=== PATIENT | male | born 1940 | race African-American/Black ===

== ENCOUNTER 2017-01-12 21:52 | Emergency (ER) | payer MEDICARE, MEDICAID ==
[~2017-01-12] VITALS: Ht 177.8 cm; Wt 77.1 kg
[~2017-01-12 21:52] MED LIST: AMOXPOW XX; ASPI81CH43 PO; BUME1TAB PO; CAR3125T PO; CLON0.1T PO; CLOP75TA41 PO; DOXY-216 PO; FLUC200T50 PO; IPRA0.035; METO2.5T11 PO; NOR5T PO; OMEP20CA5 OR; POT10T PO; [UNRECOGNIZED DRUG - CODE] OP; [UNRECOGNIZED DRUG - CODE] OP
[2017-01-12 23:15] LABS: Basophils # (auto) 0 uL; Basophils % (auto) 0.5 % (0.0-2.0); Eosinophils # (auto) 0.1 uL; Eosinophils % (auto) 1.3 % (0.0-7.0); Hematocrit 37.8 % (41.0-53.0); Hemoglobin 12.3 g/dL (13.5-17.5); INR 1.09 (0.9-1.15); Lymphocytes # (auto) 2.2 uL; Mean Corpuscular Hgb Conc. 32.6 g/dL (32.0-36.0); Mean Platelet Volume 8.9 fL (7.4-10.4); Monocytes # (auto) 0.5 uL; Monocytes % (auto) 7.7 % (0.0-12.0); Neutrophils # (auto) 3.5 uL; Neutrophils % (auto) 55.5 % (37.0-80.0); Partial Thromboplastin Time 29.6 sec (22.64-33.71); Platelet Count (auto) 209 10^3/uL (140-450); Prothrombin Time 11.8 sec (9.37-12.3); Red Cell Distribution Width 15.4 % (11.6-16.0); White Blood Cell 6.3 10^3/uL (4.4-10.8)
[2017-01-12 23:23] LABS: Albumin 3.8 g/dL (3.4-5.0); BUN/Creatinine Ratio 10.1; Calcium 8.6 mg/dL (8.5-10.1); Potassium 3.4 mmol/L (3.5-5.1)
[2017-01-12 23:34] LABS: Bilirubin, Total 0.4 mg/dL (0.2-1.0); Total Protein 7.7 g/dL (6.4-8.2)
[2017-01-13 00:15] VITALS: BP 157/71
[2017-01-13] MEDS ORDERED: PANTOPRAZOLE 40 MG TAB PO ONE (00:15)
== END 2017-01-13 01:07 | disposition home or self-care (01) ==
LOC: ER 21:52
DX: K29.70 Gastritis, unspecified, without bleeding (principal); K21.9 Gastro-esophageal reflux disease without esophagitis; J45.909 Unspecified asthma, uncomplicated; I25.10 Atherosclerotic heart disease of native coronary artery without angina pectoris; Z86.73 Personal history of transient ischemic attack (TIA), and cerebral infarction without residual deficits; E11.9 Type 2 diabetes mellitus without complications; I10 Essential (primary) hypertension; I73.9 Peripheral vascular disease, unspecified; F17.210 Nicotine dependence, cigarettes, uncomplicated; Z88.1 Allergy status to other antibiotic agents; F12.10 Cannabis abuse, uncomplicated; Z79.82 Long term (current) use of aspirin; Z79.899 Other long term (current) drug therapy
CPT/HCPCS: 36415; 80053; 84484; 85025; 85610; 85730; 93005

== ENCOUNTER 2017-01-31 00:21 | Emergency (ER) | payer MEDICARE, MEDICAID ==
[~2017-01-31] VITALS: Ht 177.8 cm; Wt 77.1 kg
[2017-01-31 01:08] LABS: Basophils # (auto) 0.1 uL; Basophils % (auto) 0.5 % (0.0-2.0); Eosinophils # (auto) 0.1 uL; Eosinophils % (auto) 0.7 % (0.0-7.0); Hemoglobin 11.6 g/dL (13.5-17.5); Lymphocytes % (auto) 21.5 % (10.0-50.0); Mean Corpuscular Hemoglobin 31.1 pg (28.0-32.0); Mean Corpuscular Hgb Conc. 32.4 g/dL (32.0-36.0); Mean Corpuscular Volume 96.2 fL (80.0-100.0); Mean Platelet Volume 8.1 fL (7.4-10.4); Monocytes # (auto) 0.6 uL; Monocytes % (auto) 6.4 % (0.0-12.0); Neutrophils # (auto) 6.6 uL; Neutrophils % (auto) 70.9 % (37.0-80.0); Platelet Count (auto) 277 10^3/uL (140-450); White Blood Cell 9.3 10^3/uL (4.4-10.8)
[2017-01-31 01:22] LABS: INR 1.04 (0.9-1.15); Prothrombin Time 11.2 sec (9.37-12.3)
[2017-01-31 01:38] LABS: Albumin 3.9 g/dL (3.4-5.0); BUN/Creatinine Ratio 13.5; Calcium 8.7 mg/dL (8.5-10.1); Potassium 3.3 mmol/L (3.5-5.1)
[2017-01-31 01:41] LABS: Bilirubin, Total 0.5 mg/dL (0.2-1.0); Total Protein 7.5 g/dL (6.4-8.2)
[2017-01-31 04:43] VITALS: BP 140/80
== END 2017-01-31 04:50 | disposition home or self-care (01) ==
LOC: EDBD 00:21 → ER 00:21
DX: T82.838A Hemorrhage due to vascular prosthetic devices, implants and grafts, initial encounter (principal); I25.10 Atherosclerotic heart disease of native coronary artery without angina pectoris; I10 Essential (primary) hypertension; J45.909 Unspecified asthma, uncomplicated; E11.9 Type 2 diabetes mellitus without complications; F17.210 Nicotine dependence, cigarettes, uncomplicated; F12.10 Cannabis abuse, uncomplicated; Z86.73 Personal history of transient ischemic attack (TIA), and cerebral infarction without residual deficits; Z88.1 Allergy status to other antibiotic agents; Y93.89 Activity, other specified; Y99.8 Other external cause status; Y92.89 Other specified places as the place of occurrence of the external cause
CPT/HCPCS: 36415; 80053; 85025; 85610

== ENCOUNTER 2017-01-31 17:42 | Emergency (ER) | payer MEDICARE, MEDICAID ==
[~2017-01-31] VITALS: Ht 177.8 cm; Wt 77.1 kg
[2017-01-31 19:25] VITALS: BP 148/87
[2017-01-31 19:46] LABS: Basophils # (auto) 0 uL; Basophils % (auto) 0.3 % (0.0-2.0); Eosinophils # (auto) 0.1 uL; Eosinophils % (auto) 0.9 % (0.0-7.0); Hematocrit 35.1 % (41.0-53.0); Hemoglobin 11.6 g/dL (13.5-17.5); Lymphocytes # (auto) 1.3 uL; Mean Corpuscular Hemoglobin 31.7 pg (28.0-32.0); Mean Corpuscular Volume 96.3 fL (80.0-100.0); Mean Platelet Volume 9.2 fL (7.4-10.4); Monocytes # (auto) 0.5 uL; Monocytes % (auto) 7.3 % (0.0-12.0); Neutrophils # (auto) 4.7 uL; Neutrophils % (auto) 71.5 % (37.0-80.0); Platelet Count (auto) 269 10^3/uL (140-450); Red Cell Distribution Width 15.9 % (11.6-16.0); White Blood Cell 6.6 10^3/uL (4.4-10.8)
[2017-01-31 19:53] LABS: Albumin 4.1 g/dL (3.4-5.0); BUN/Creatinine Ratio 11.9; Calcium 9.2 mg/dL (8.5-10.1); Potassium 3.4 mmol/L (3.5-5.1)
[2017-01-31 19:56] LABS: Bilirubin, Total 0.8 mg/dL (0.2-1.0); Total Protein 7.7 g/dL (6.4-8.2)
[2017-01-31 20:08] LABS: INR 1.03 (0.9-1.15); Partial Thromboplastin Time 27.8 sec (22.64-33.71); Prothrombin Time 11.1 sec (9.37-12.3)
[2017-01-31] MEDS ORDERED: FAMOTIDINE (10MG/ML) 2ML VL IV ONE ×2 (20:39→20:45)
== END 2017-01-31 21:16 | disposition home or self-care (01) ==
LOC: ER 17:44
DX: Z48.01 Encounter for change or removal of surgical wound dressing (principal); D68.9 Coagulation defect, unspecified; E11.9 Type 2 diabetes mellitus without complications; I10 Essential (primary) hypertension; J45.909 Unspecified asthma, uncomplicated; I25.810 Atherosclerosis of coronary artery bypass graft(s) without angina pectoris; F12.10 Cannabis abuse, uncomplicated; F17.210 Nicotine dependence, cigarettes, uncomplicated; Z86.73 Personal history of transient ischemic attack (TIA), and cerebral infarction without residual deficits; Z98.61 Coronary angioplasty status; Z88.1 Allergy status to other antibiotic agents
CPT/HCPCS: 36415; 80053; 85025; 85610; 85730; 96374; 99284; J3490

== ENCOUNTER 2021-12-05 11:54 | Inpatient (IN) | payer MEDICARE, MEDICAID ==
[~2021-12-05] VITALS: Ht 177.8 cm; Wt 82.3 kg
[~2021-12-05 11:54] MED LIST changes: -BUME1TAB PO; +BUME1TAB3 PO; -CLOP75TA41 PO; +CLOP75TA70 PO; -DOXY-216 PO; +DOXY-286 PO; +HYDR-4833 PO; +METO2.5T PO; -METO2.5T11 PO; -NOR5T PO; -OMEP20CA5 OR; +OMEP20CA74 OR
[2021-12-05 13:01] LABS: Albumin 3.3 g/dL (3.4-5.0); Basophils # (auto) 0 10 ^3/uL (0-0.2); Basophils % (auto) 0.6 % (0.0-2.0); Calcium 9.3 mg/dL (8.5-10.1); Eosinophils # (auto) 0 10 ^3/uL (0-0.8); Eosinophils % (auto) 0.7 % (0.0-7.0); Hematocrit 34.8 % (41.0-53.0); Hemoglobin 11.5 g/dL (13.5-17.5); Lymphocytes # (auto) 1.2 10 ^3/uL (0.4-5.4); Mean Corpuscular Hemoglobin 32.8 pg (28.0-32.0); Mean Corpuscular Volume 99.5 fL (80.0-100.0); Monocytes # (auto) 0.4 10 ^3/uL (0-1.3); Neutrophils # (auto) 4.6 10 ^3/uL (1.6-8.6); Neutrophils % (auto) 72.7 % (37.0-80.0); Potassium 3.6 mmol/L (3.5-5.1); Red Cell Distribution Width 14.6 % (11.8-14.3); White Blood Cell 6.4 10^3/uL (4.4-10.8)
[2021-12-05 13:03] LABS: BUN/Creatinine Ratio 10.8
[2021-12-05 13:08] LABS: Bilirubin, Total 0.4 mg/dL (0.2-1.0); Total Protein 6.7 g/dL (6.4-8.2)
[2021-12-05] MEDS ORDERED: methylPREDNISolone SOD SUCC 125 MG/2 ML VL IV ONE (14:00)
[2021-12-05] MEDS ORDERED: FUROSEMIDE 40 MG/4 ML VIAL IV ONE (14:00)
[2021-12-05] MEDS ORDERED: ENOXAPARIN SOD 80 MG/0.8ML SYRINGE SC ONE (14:00)
[2021-12-05] MEDS ORDERED: IPRATROPIUM BROM 0.5 MG/2.5ML INH SOL NEB ONE (14:00)
[2021-12-05] MEDS ORDERED: ALBUTEROL SULF 2.5 MG/0.5ML(0.5%) NEB SOLN NEB ONE (14:00)
[2021-12-05 14:18] LABS: Urine Bacteria NONE SEEN /hpf (None Seen); Urine Blood Negative /uL (Negative); Urine Specific Gravity 1.014 (1.001-1.035); Urine WBC <1 /hpf (0 - 3)
[2021-12-05] MEDS ORDERED: ACETAMINOPHEN 325 MG TAB PO PRN (15:15)
[2021-12-05] MEDS ORDERED: HYDROcodone-ACET 5/325MG TAB PO PRN (15:15)
[2021-12-05] MEDS ORDERED: MORPHINE SULFATE INJECTION 2 MG/ML SYRG IV PRN ×2 (15:15)
[2021-12-05] MEDS ORDERED: ONDANSETRON HCL 4 MG/2 ML VIAL IV PRN (15:15)
[2021-12-05] MEDS ORDERED: DOCUSATE SOD 100 MG CAP PO PRN (15:15)
[2021-12-05] MEDS ORDERED: NITROGLYCERIN 0.4 MG SL TAB SL PRN (15:15)
[2021-12-05] MEDS ORDERED: DEXTROSE (50%) 50ML SYRG IV PRN (15:30)
[2021-12-05 15:48] LABS: Cholesterol 182 mg/dL (< 200)
[2021-12-05 15:51] LABS: HDL Cholesterol 47 mg/dL (40-59); LDL Cholesterol 117 mg/dL (< 100); Triglycerides 54 mg/dL (< 150)
[2021-12-05] MEDS: InsuLIN REG 1unit/0.01ml Soln (100units/ml) SC SCH ×2 (17:00→21:43)
[2021-12-05] MEDS: ACCU-CHEK COMFORT CURVE STRIP VI SCH ×2 (17:00→21:43)
[2021-12-05 18:00] VITALS: BP 148/59
[2021-12-05] MEDS ORDERED: HEPARIN DRIP/D5W 100UNITS/ML 250 ML IV SCH (18:30)
[2021-12-05] MEDS ORDERED: HEPARIN SODIUM (PORCINE) 5000 UNITS/ML 1ML VIAL IV ONE (18:30)
[2021-12-05] MEDS ORDERED: DEXL60CA4 PO (18:54)
[2021-12-05] MEDS ORDERED: FURO20TA3 PO (18:54)
[2021-12-05] MEDS ORDERED: IPRIH IN (18:54)
[2021-12-05] MEDS ORDERED: GABA300C10 PO (18:54)
[2021-12-05] MEDS ORDERED: ATOR20TA50 PO (18:54)
[2021-12-05] MEDS ORDERED: BUDE1AER4 IN (18:54)
[2021-12-05] MEDS ORDERED: ALBU108A5 IN (18:54)
[2021-12-05] MEDS ORDERED: ALLO300T2 PO (18:54)
[2021-12-05 20:49] LABS: Basophils # (auto) 0 10 ^3/uL (0-0.2); Basophils % (auto) 0.1 % (0.0-2.0); Eosinophils # (auto) 0 10 ^3/uL (0-0.8); Hematocrit 34.2 % (41.0-53.0); Hemoglobin 11.7 g/dL (13.5-17.5); Lymphocytes # (auto) 0.3 10 ^3/uL (0.4-5.4); Lymphocytes % (auto) 5.1 % (10.0-50.0); Mean Corpuscular Hemoglobin 33.7 pg (28.0-32.0); Mean Corpuscular Hgb Conc. 34.1 g/dL (32.0-36.0); Mean Corpuscular Volume 98.7 fL (80.0-100.0); Monocytes # (auto) 0 10 ^3/uL (0-1.3); Monocytes % (auto) 0.8 % (0.0-12.0); Neutrophils # (auto) 5.8 10 ^3/uL (1.6-8.6); Red Blood Cells 3.47 10^6/uL (4.5-5.90); Red Cell Distribution Width 14.7 % (11.8-14.3); White Blood Cell 6.2 10^3/uL (4.4-10.8)
[2021-12-05 20:51] VITALS: BP 18/166
[2021-12-05 21:05] LABS: INR 1.1 (0.9-1.15); Partial Thromboplastin Time 36.7 sec (23.6-33.0)
[2021-12-05 22:00] VITALS: BP 141/70
[2021-12-05] MEDS ORDERED: IPRATROPIUM BROM 0.5 MG/2.5ML INH SOL NEB SCH (22:00)
[2021-12-05] MEDS ORDERED: CARVEDILOL 3.125 MG TAB PO SCH (22:00)
[2021-12-05] MEDS: ALBUTEROL SULF 2.5 MG/0.5ML(0.5%) NEB SOLN NEB PRN (22:48)
[2021-12-05] MEDS: IPRATROPIUM BROM 0.5 MG/2.5ML INH SOL NEB SCH (22:48)
[2021-12-06] VITALS (11 sets, daily range): BP systolic 119–207; BP diastolic 59–92
[2021-12-06] MEDS ORDERED: HEPARIN DRIP/D5W 100UNITS/ML 250 ML IV SCH
[2021-12-06] MEDS ORDERED: FUROSEMIDE 40 MG/4 ML VIAL IV ONE (00:45)
[2021-12-06] MEDS ORDERED: CARVEDILOL 3.125 MG TAB PO ONE (01:00)
[2021-12-06] MEDS ORDERED: NITROGLYCERIN 0.4 MG SL TAB SL ONE (01:12)
[2021-12-06] MEDS ORDERED: NITROGLYCERIN 0.4 MG SL TAB SL PRN (01:15)
[2021-12-06] MEDS ORDERED: PANTOPRAZOLE 40 MG/10 ML VIAL INJ IV ONE (01:30)
[2021-12-06] MEDS ORDERED: ALBUTEROL SULF HFA 90MCG INH 200DOSE IN PRN (02:00)
[2021-12-06 05:52] LABS: Basophils # (auto) 0 10 ^3/uL (0-0.2); Basophils % (auto) 0.1 % (0.0-2.0); Eosinophils # (auto) 0 10 ^3/uL (0-0.8); Hematocrit 28.7 % (41.0-53.0); Lymphocytes # (auto) 0.8 10 ^3/uL (0.4-5.4); Lymphocytes % (auto) 11.7 % (10.0-50.0); Mean Corpuscular Hemoglobin 33.9 pg (28.0-32.0); Mean Corpuscular Hgb Conc. 34.8 g/dL (32.0-36.0); Mean Corpuscular Volume 97.2 fL (80.0-100.0); Monocytes # (auto) 0.4 10 ^3/uL (0-1.3); Monocytes % (auto) 6.2 % (0.0-12.0); Neutrophils # (auto) 5.9 10 ^3/uL (1.6-8.6); Red Blood Cells 2.95 10^6/uL (4.5-5.90); Red Cell Distribution Width 14.6 % (11.8-14.3); White Blood Cell 7.1 10^3/uL (4.4-10.8)
[2021-12-06] MEDS: InsuLIN REG 1unit/0.01ml Soln (100units/ml) SC SCH ×3 (06:06→21:09)
[2021-12-06] MEDS: FUROSEMIDE 40 MG/4 ML VIAL IV SCH ×2 (06:06→17:34)
[2021-12-06] MEDS: ACCU-CHEK COMFORT CURVE STRIP VI SCH ×4 (06:06→21:09)
[2021-12-06] MEDS: SUCRALFATE 1 GM TAB PO SCH ×4 (06:06→21:09)
[2021-12-06] MEDS: ALBUTEROL SULF 2.5 MG/0.5ML(0.5%) NEB SOLN NEB PRN (06:14)
[2021-12-06] MEDS: IPRATROPIUM BROM 0.5 MG/2.5ML INH SOL NEB SCH ×2 (06:14→22:16)
[2021-12-06] MEDS: CARVEDILOL 3.125 MG TAB PO SCH ×2 (09:29→20:33)
[2021-12-06] MEDS: GABAPENTIN 300 MG CAP PO SCH ×2 (09:53→21:09)
[2021-12-06] MEDS ORDERED: ATORVASTATIN 20 MG TAB PO SCH (10:00)
[2021-12-06] MEDS ORDERED: PANTOPRAZOLE 40 MG/10 ML VIAL INJ IV SCH (10:00)
[2021-12-06 10:03] LABS: INR 1.16 (0.9-1.15); Partial Thromboplastin Time 44.3 sec (23.6-33.0)
[2021-12-06] MEDS: ATORVASTATIN 20 MG TAB PO SCH (10:04)
[2021-12-06] MEDS: ALLOPURINOL 100 MG TAB PO SCH (10:08)
[2021-12-07 04:47] VITALS: BP 164/84
[2021-12-07] MEDS: ACCU-CHEK COMFORT CURVE STRIP VI SCH (05:45)
[2021-12-07] MEDS: SUCRALFATE 1 GM TAB PO SCH (05:46)
[2021-12-07] MEDS: ALBUTEROL SULF 2.5 MG/0.5ML(0.5%) NEB SOLN NEB PRN (06:09)
[2021-12-07 06:10] LABS: Basophils # (auto) 0.1 10 ^3/uL (0-0.2); Basophils % (auto) 0.8 % (0.0-2.0); Eosinophils # (auto) 0.1 10 ^3/uL (0-0.8); Eosinophils % (auto) 0.9 % (0.0-7.0); Hematocrit 31.1 % (41.0-53.0); Hemoglobin 10.5 g/dL (13.5-17.5); Lymphocytes # (auto) 1.7 10 ^3/uL (0.4-5.4); Lymphocytes % (auto) 21.6 % (10.0-50.0); Mean Corpuscular Hemoglobin 33.2 pg (28.0-32.0); Mean Corpuscular Hgb Conc. 33.8 g/dL (32.0-36.0); Mean Corpuscular Volume 98.2 fL (80.0-100.0); Monocytes # (auto) 0.7 10 ^3/uL (0-1.3); Monocytes % (auto) 8.4 % (0.0-12.0); Neutrophils # (auto) 5.4 10 ^3/uL (1.6-8.6); Neutrophils % (auto) 68.3 % (37.0-80.0); Nucleated Red Blood Cells % 0.1 %; Red Blood Cells 3.16 10^6/uL (4.5-5.90); Red Cell Distribution Width 14.6 % (11.8-14.3); White Blood Cell 7.9 10^3/uL (4.4-10.8)
[2021-12-07] MEDS: IPRATROPIUM BROM 0.5 MG/2.5ML INH SOL NEB SCH ×3 (06:10→19:44)
[2021-12-07 06:44] LABS: Calcium 8.8 mg/dL (8.5-10.1); Potassium 3.9 mmol/L (3.5-5.1)
[2021-12-07 06:46] LABS: BUN/Creatinine Ratio 18.3
[2021-12-07] MEDS: FUROSEMIDE 40 MG/4 ML VIAL IV SCH (06:52)
[2021-12-07 08:00] VITALS: BP 155/74
[2021-12-07 08:58] VITALS: BP 155/74
[2021-12-07] MEDS: ASPirin 81 mg TAB PO SCH ×2 (10:00→10:07)
[2021-12-07] MEDS: CARVEDILOL 3.125 MG TAB PO SCH ×2 (10:07→21:31)
[2021-12-07] MEDS: ATORVASTATIN 20 MG TAB PO SCH (10:08)
[2021-12-07] MEDS: PANTOPRAZOLE 40 MG TAB PO SCH (10:10)
[2021-12-07] MEDS: ALLOPURINOL 100 MG TAB PO SCH (10:10)
[2021-12-07] MEDS: CLOPIDOGREL BISULFATE 75 MG TAB PO SCH (10:10)
[2021-12-07] MEDS: GABAPENTIN 300 MG CAP PO SCH ×2 (10:10→21:32)
[2021-12-07] MEDS: ALBUTEROL SULF 2.5 MG/0.5ML(0.5%) NEB SOLN NEB SCH ×2 (12:32→18:00)
[2021-12-07 13:00] VITALS: BP 154/70
[2021-12-07] MEDS ORDERED: LABETALOL HCL 5 MG/ML 4ML SYRINGE IV PRN (15:45)
[2021-12-07 17:00] VITALS: BP 115/70
[2021-12-07 22:00] VITALS: BP 151/66
[2021-12-08 05:00] VITALS: BP 164/73
[2021-12-08] MEDS: ALBUTEROL SULF 2.5 MG/0.5ML(0.5%) NEB SOLN NEB SCH ×2 (06:46→10:28)
[2021-12-08] MEDS: IPRATROPIUM BROM 0.5 MG/2.5ML INH SOL NEB SCH ×2 (06:47→10:28)
[2021-12-08 08:00] VITALS: BP 136/77
[2021-12-08] MEDS: ATORVASTATIN 20 MG TAB PO SCH (09:30)
[2021-12-08] MEDS: CLOPIDOGREL BISULFATE 75 MG TAB PO SCH (09:30)
[2021-12-08] MEDS: PANTOPRAZOLE 40 MG TAB PO SCH (09:30)
[2021-12-08] MEDS: ALLOPURINOL 100 MG TAB PO SCH (09:30)
[2021-12-08] MEDS: CARVEDILOL 3.125 MG TAB PO SCH (09:30)
[2021-12-08] MEDS: GABAPENTIN 300 MG CAP PO SCH (09:30)
[2021-12-08] MEDS: ASPirin 81 mg TAB PO SCH (10:00)
[2021-12-08] MEDS ORDERED: FUROSEMIDE 40 MG TAB PO SCH (10:00)
[2021-12-08 12:00] VITALS: BP 141/76
[2021-12-08] MEDS ORDERED: 1,4-CRY XX ×2 (12:20→12:21)
[2021-12-08] MEDS ORDERED: LIDO1PAD EX (12:20)
[2021-12-08] MEDS ORDERED: CAL025T GT (12:20)
[2021-12-08] MEDS ORDERED: ALBU108A5 IN (12:21)
[2021-12-08] MEDS ORDERED: DEXL60CA4 PO (12:21)
[2021-12-08] MEDS ORDERED: BUDE1AER4 IN (12:21)
[2021-12-08] MEDS ORDERED: IPRIH IN ×2 (12:21→12:24)
== END 2021-12-08 17:02 | disposition home health service (06) | DRG 194 ==
LOC: ER 11:54 → EDUNIT# 11:54 → EDBD 11:54 → TELE-CENTR 15:17 → ER 17:37
PROVIDERS: ADMIT Family Medicine; ATTEND Internal Medicine
DX: I13.0 Hypertensive heart and chronic kidney disease with heart failure and stage 1 through stage 4 chronic kidney disease, or unspecified chronic kidney disease (principal); J96.00 Acute respiratory failure, unspecified whether with hypoxia or hypercapnia; I21.A1 Myocardial infarction type 2; E44.1 Mild protein-calorie malnutrition; N17.9 Acute kidney failure, unspecified; D63.8 Anemia in other chronic diseases classified elsewhere; N18.30 Chronic kidney disease, stage 3 unspecified; E11.65 Type 2 diabetes mellitus with hyperglycemia; E66.3 Overweight; F17.210 Nicotine dependence, cigarettes, uncomplicated; E11.22 Type 2 diabetes mellitus with diabetic chronic kidney disease; I50.82 Biventricular heart failure; E11.51 Type 2 diabetes mellitus with diabetic peripheral angiopathy without gangrene; Z20.822 Contact with and (suspected) exposure to COVID-19; I25.10 Atherosclerotic heart disease of native coronary artery without angina pectoris; J44.9 Chronic obstructive pulmonary disease, unspecified; M10.9 Gout, unspecified; Z80.3 Family history of malignant neoplasm of breast; Z88.1 Allergy status to other antibiotic agents; Z80.8 Family history of malignant neoplasm of other organs or systems; I25.2 Old myocardial infarction; Z82.49 Family history of ischemic heart disease and other diseases of the circulatory system; Z83.3 Family history of diabetes mellitus; Z86.73 Personal history of transient ischemic attack (TIA), and cerebral infarction without residual deficits; Z89.439 Acquired absence of unspecified foot; Z95.1 Presence of aortocoronary bypass graft; Z89.422 Acquired absence of other left toe(s); Z68.25 Body mass index [BMI] 25.0-25.9, adult; I50.33 Acute on chronic diastolic (congestive) heart failure
CPT/HCPCS: 36415; 36600; 71045; 80048; 80053; 80061; 81001; 82805; 82962; 83036; 83880; 84443; 84484; 85025; 85379; 85610; 85730; 93005; 93306; 93970; 94640; 96365; 96375; 97110; 97530; 99291; C9113; G0378; J3490

== ENCOUNTER 2021-12-16 19:17 | Inpatient (IN) | payer MEDICARE, MEDICAID ==
[~2021-12-16] VITALS: Ht 177.8 cm; Wt 80.9 kg
[~2021-12-16 19:17] MED LIST changes: +ALBU108A5 IN; +ALLO300T2 PO; -AMOXPOW XX; -ASPI81CH43 PO; +ATOR20TA50 PO; +BUDE1AER4 IN; -BUME1TAB3 PO; -CAR3125T PO; -CLON0.1T PO; +DEXL60CA4 PO; -DOXY-286 PO; -FLUC200T50 PO; +FURO20TA3 PO; +GABA300C10 PO; -HYDR-4833 PO; -IPRA0.035; +IPRIH IN; -METO2.5T PO; -OMEP20CA74 OR; -[UNRECOGNIZED DRUG - CODE] OP
[2021-12-16] MEDS ORDERED: ASPirin 325 MG TAB PO ONE (20:45)
[2021-12-16] MEDS ORDERED: NITROGLYCERIN 2% OINT 1GM PKG TD ONE (21:00)
[2021-12-16 21:34] LABS: Basophils # (auto) 0 10 ^3/uL (0-0.2); Basophils % (auto) 0.6 % (0.0-2.0); Eosinophils # (auto) 0.1 10 ^3/uL (0-0.8); Eosinophils % (auto) 0.9 % (0.0-7.0); Hematocrit 28.6 % (41.0-53.0); Hemoglobin 9.8 g/dL (13.5-17.5); Lymphocytes # (auto) 1.5 10 ^3/uL (0.4-5.4); Lymphocytes % (auto) 25.1 % (10.0-50.0); Mean Corpuscular Hemoglobin 33.6 pg (28.0-32.0); Mean Corpuscular Hgb Conc. 34.2 g/dL (32.0-36.0); Mean Corpuscular Volume 98.4 fL (80.0-100.0); Monocytes # (auto) 0.6 10 ^3/uL (0-1.3); Monocytes % (auto) 10.6 % (0.0-12.0); Neutrophils # (auto) 3.7 10 ^3/uL (1.6-8.6); Neutrophils % (auto) 62.8 % (37.0-80.0); Nucleated Red Blood Cells % 0.1 %; Red Blood Cells 2.91 10^6/uL (4.5-5.90); Red Cell Distribution Width 14.3 % (11.8-14.3); White Blood Cell 5.8 10^3/uL (4.4-10.8)
[2021-12-16 21:46] LABS: INR 1.16 (0.9-1.15); Partial Thromboplastin Time 27.8 sec (23.6-33.0)
[2021-12-16 21:50] LABS: Calcium 8.6 mg/dL (8.5-10.1); Potassium 3.7 mmol/L (3.5-5.1)
[2021-12-16 21:55] LABS: BUN/Creatinine Ratio 12.1; Bilirubin, Total 0.5 mg/dL (0.2-1.0)
[2021-12-16] MEDS ORDERED: ENOXAPARIN SOD 80 MG/0.8ML SYRINGE SC ONE (22:30)
[2021-12-16] MEDS ORDERED: FUROSEMIDE 100 MG/10ML VIAL IV ONE (22:30)
[2021-12-16] MEDS ORDERED: NITROGLYCERIN 0.4 MG SL TAB SL PRN (23:15)
[2021-12-16] MEDS ORDERED: MORPHINE SULFATE INJECTION 2 MG/ML SYRG IV PRN (23:15)
[2021-12-16] MEDS ORDERED: HYDROcodone-ACET 5/325MG TAB PO PRN (23:15)
[2021-12-16] MEDS ORDERED: ACETAMINOPHEN 325 MG TAB PO PRN (23:15)
[2021-12-16] MEDS ORDERED: ONDANSETRON HCL 4 MG/2 ML VIAL IV PRN (23:15)
[2021-12-16] MEDS ORDERED: MORPHINE SULFATE 4 MG/ML SYR/VIAL IV PRN (23:15)
[2021-12-16] MEDS ORDERED: hydrALAZINE HCL 20 MG/ML VL IV ONE (23:30)
[2021-12-16 23:37] LABS: Urine Bacteria NONE SEEN /hpf (None Seen); Urine Blood Negative /uL (Negative); Urine Specific Gravity 1.005 (1.001-1.035); Urine WBC <1 /hpf (0 - 3)
[2021-12-16] MEDS ORDERED: hydrALAZINE HCL 20 MG/ML VL IV PRN (23:45)
[2021-12-17] MEDS ORDERED: amLODIPine BESYLATE 5 MG TAB PO ONE (01:30)
[2021-12-17] MEDS ORDERED: FAMOTIDINE (10MG/ML) 2ML VL IV ONE (01:45)
[2021-12-17 03:38] VITALS: BP 141/65
[2021-12-17] MEDS ORDERED: SUCR1TAB PO (04:08)
[2021-12-17 05:00] VITALS: BP 147/52
[2021-12-17] MEDS ORDERED: TRAM50TA2 PO (05:07)
[2021-12-17] MEDS ORDERED: NITR0.4S29 SL (05:07)
[2021-12-17] MEDS ORDERED: ALIR75IN2 SC (05:07)
[2021-12-17] MEDS ORDERED: CLOP75TA28 PO (05:07)
[2021-12-17] MEDS ORDERED: OMEG100078 PO (05:07)
[2021-12-17] MEDS ORDERED: ALBUAER3 IN (05:07)
[2021-12-17] MEDS: SODIUM CHLOR 0.9% PF (SALINE LOCK) 10ML VIAL/SYR IV SCH ×3 (05:58→22:00)
[2021-12-17] MEDS: HEPARIN SODIUM (PORCINE) 5000 UNITS/ML 1ML VIAL SC SCH ×2 (05:59→14:00)
[2021-12-17 08:02] LABS: Basophils # (auto) 0.1 10 ^3/uL (0-0.2); Basophils % (auto) 0.9 % (0.0-2.0); Eosinophils # (auto) 0.1 10 ^3/uL (0-0.8); Eosinophils % (auto) 0.8 % (0.0-7.0); Hemoglobin 10.3 g/dL (13.5-17.5); Lymphocytes # (auto) 1.5 10 ^3/uL (0.4-5.4); Lymphocytes % (auto) 22.3 % (10.0-50.0); Mean Corpuscular Hemoglobin 33.5 pg (28.0-32.0); Mean Corpuscular Hgb Conc. 34.2 g/dL (32.0-36.0); Mean Corpuscular Volume 97.9 fL (80.0-100.0); Monocytes # (auto) 0.6 10 ^3/uL (0-1.3); Monocytes % (auto) 8.9 % (0.0-12.0); Neutrophils # (auto) 4.7 10 ^3/uL (1.6-8.6); Neutrophils % (auto) 67.1 % (37.0-80.0); Red Blood Cells 3.06 10^6/uL (4.5-5.90); Red Cell Distribution Width 14.5 % (11.8-14.3); White Blood Cell 6.9 10^3/uL (4.4-10.8)
[2021-12-17 08:24] LABS: Albumin 3.1 g/dL (3.4-5.0); Calcium 8.7 mg/dL (8.5-10.1)
[2021-12-17 08:28] LABS: BUN/Creatinine Ratio 12.4; Bilirubin, Total 0.5 mg/dL (0.2-1.0); Total Protein 6.1 g/dL (6.4-8.2)
[2021-12-17 09:00] VITALS: BP 159/87
[2021-12-17] MEDS: CARVEDILOL 3.125 MG TAB PO SCH ×2 (09:13→22:00)
[2021-12-17] MEDS: ASPirin 81 mg TAB PO SCH (09:13)
[2021-12-17] MEDS: amLODIPine BESYLATE 5 MG TAB PO SCH (09:14)
[2021-12-17] MEDS ORDERED: FUROSEMIDE 40 MG/4 ML VIAL IV SCH (10:00)
[2021-12-17] MEDS: FORMOTEROL IN SCH (10:00)
[2021-12-17] MEDS: BUDESONIDE IN SCH (10:00)
[2021-12-17] MEDS ORDERED: FAMOTIDINE (10MG/ML) 2ML VL IV SCH (10:00)
[2021-12-17] MEDS: SUCRALFATE 1 GM TAB PO SCH ×3 (11:30→22:00)
[2021-12-17 13:00] VITALS: BP 143/73
[2021-12-17] MEDS ORDERED: NITROGLYCERIN 0.2MG/HR TOPICAL PATCH TD SCH (13:00)
[2021-12-17] MEDS ORDERED: IPRATROPIUM BROMIDE HFA AER IN SCH (14:00)
[2021-12-17] MEDS ORDERED: HEPARIN DRIP/D5W 100UNITS/ML 250 ML IV SCH ×5 (14:45→15:00)
[2021-12-17] MEDS ORDERED: HEPARIN SODIUM (PORCINE) 5000 UNITS/ML 1ML VIAL IV ONE ×6 (14:45→15:00)
[2021-12-17] MEDS: HEPARIN DRIP/D5W 100UNITS/ML 250 ML IV SCH (16:00)
[2021-12-17 16:41] LABS: Basophils # (auto) 0.1 10 ^3/uL (0-0.2); Basophils % (auto) 0.9 % (0.0-2.0); Eosinophils # (auto) 0.1 10 ^3/uL (0-0.8); Eosinophils % (auto) 1.7 % (0.0-7.0); Hemoglobin 10.1 g/dL (13.5-17.5); Lymphocytes # (auto) 1.6 10 ^3/uL (0.4-5.4); Lymphocytes % (auto) 27.1 % (10.0-50.0); Mean Corpuscular Hemoglobin 33.1 pg (28.0-32.0); Mean Corpuscular Hgb Conc. 33.7 g/dL (32.0-36.0); Mean Corpuscular Volume 98.4 fL (80.0-100.0); Monocytes # (auto) 0.6 10 ^3/uL (0-1.3); Monocytes % (auto) 10.7 % (0.0-12.0); Neutrophils # (auto) 3.5 10 ^3/uL (1.6-8.6); Neutrophils % (auto) 59.6 % (37.0-80.0); Nucleated Red Blood Cells % 0.1 %; Red Blood Cells 3.05 10^6/uL (4.5-5.90); Red Cell Distribution Width 14.6 % (11.8-14.3); White Blood Cell 5.8 10^3/uL (4.4-10.8)
[2021-12-17 16:43] VITALS: BP 143/62
[2021-12-17 17:20] LABS: INR 1.11 (0.9-1.15); Partial Thromboplastin Time 34.5 sec (23.6-33.0)
[2021-12-17] MEDS: FUROSEMIDE 40 MG/4 ML VIAL IV SCH (18:00)
[2021-12-17] MEDS: NITROGLYCERIN 0.2MG/HR TOPICAL PATCH TD SCH (20:59)
[2021-12-17 22:00] VITALS: BP 138/49
[2021-12-17] MEDS: GABAPENTIN 300 MG CAP PO SCH (22:00)
[2021-12-17] MEDS: ATORVASTATIN 20 MG TAB PO SCH (22:00)
[2021-12-17] MEDS: POTASSIUM CHL 10 Meq TABLET PO SCH (22:00)
[2021-12-17 23:33] LABS: INR 1.16 (0.9-1.15); Partial Thromboplastin Time 56.4 sec (23.6-33.0)
[2021-12-18 05:00] VITALS: BP 143/56
[2021-12-18] MEDS: SODIUM CHLOR 0.9% PF (SALINE LOCK) 10ML VIAL/SYR IV SCH ×3 (06:05→22:13)
[2021-12-18] MEDS: FUROSEMIDE 40 MG/4 ML VIAL IV SCH ×2 (06:05→19:02)
[2021-12-18] MEDS: SUCRALFATE 1 GM TAB PO SCH ×4 (06:06→22:13)
[2021-12-18 06:27] LABS: Basophils # (auto) 0 10 ^3/uL (0-0.2); Basophils % (auto) 0.8 % (0.0-2.0); Eosinophils # (auto) 0.1 10 ^3/uL (0-0.8); Hemoglobin 10.2 g/dL (13.5-17.5); Lymphocytes # (auto) 2.1 10 ^3/uL (0.4-5.4); Monocytes # (auto) 0.6 10 ^3/uL (0-1.3); Nucleated Red Blood Cells % 0.1 %; Red Cell Distribution Width 14.5 % (11.8-14.3)
[2021-12-18 06:29] LABS: Eosinophils % (auto) 2.3 % (0.0-7.0); Hematocrit 29.3 % (41.0-53.0); Lymphocytes % (auto) 33.5 % (10.0-50.0); Mean Corpuscular Hemoglobin 34.2 pg (28.0-32.0); Mean Corpuscular Hgb Conc. 34.7 g/dL (32.0-36.0); Mean Corpuscular Volume 98.7 fL (80.0-100.0); Monocytes % (auto) 9.9 % (0.0-12.0); Neutrophils # (auto) 3.4 10 ^3/uL (1.6-8.6); Neutrophils % (auto) 53.5 % (37.0-80.0); Red Blood Cells 2.97 10^6/uL (4.5-5.90); White Blood Cell 6.3 10^3/uL (4.4-10.8)
[2021-12-18 06:34] LABS: BUN/Creatinine Ratio 12.1; Calcium 8.3 mg/dL (8.5-10.1); Magnesium 1.9 mg/dL (1.6-2.6); Potassium 4.1 mmol/L (3.5-5.1)
[2021-12-18 06:41] LABS: INR 1.17 (0.9-1.15); Partial Thromboplastin Time 54.7 sec (23.6-33.0)
[2021-12-18 08:00] VITALS: BP 142/68
[2021-12-18] MEDS ORDERED: ALLOPURINOL 100 MG TAB PO SCH (10:00)
[2021-12-18] MEDS: FORMOTEROL IN SCH (10:00)
[2021-12-18] MEDS: BUDESONIDE IN SCH (10:00)
[2021-12-18 12:00] VITALS: BP 147/61
[2021-12-18] MEDS: PANTOPRAZOLE 40 MG TAB PO SCH (12:04)
[2021-12-18] MEDS: POTASSIUM CHL 10 Meq TABLET PO SCH ×2 (12:05→22:14)
[2021-12-18] MEDS: CLOPIDOGREL BISULFATE 75 MG TAB PO SCH (12:05)
[2021-12-18] MEDS: ASPirin 81 mg TAB PO SCH (12:06)
[2021-12-18] MEDS: GABAPENTIN 300 MG CAP PO SCH ×2 (12:06→22:14)
[2021-12-18] MEDS: amLODIPine BESYLATE 5 MG TAB PO SCH (12:07)
[2021-12-18] MEDS: CARVEDILOL 3.125 MG TAB PO SCH ×2 (12:07→22:14)
[2021-12-18] MEDS: NITROGLYCERIN 0.2MG/HR TOPICAL PATCH TD SCH (12:10)
[2021-12-18 12:14] LABS: INR 1.11 (0.9-1.15); Partial Thromboplastin Time 51.1 sec (23.6-33.0)
[2021-12-18 16:00] VITALS: BP 138/59
[2021-12-18] MEDS: HEPARIN DRIP/D5W 100UNITS/ML 250 ML IV SCH (16:20)
[2021-12-18 20:00] VITALS: BP 152/67
[2021-12-18] MEDS: SODIUM CHLORIDE 0.9% 1,000 ML IV SCH (21:00)
[2021-12-18 22:00] VITALS: BP 152/67
[2021-12-18] MEDS: ATORVASTATIN 20 MG TAB PO SCH (22:18)
[2021-12-18] MEDS: ALLOPURINOL 100 MG TAB PO SCH (22:18)
[2021-12-19] VITALS (8 sets, daily range): BP systolic 123–159; BP diastolic 63–104
[2021-12-19] MEDS: SODIUM CHLOR 0.9% PF (SALINE LOCK) 10ML VIAL/SYR IV SCH ×3 (06:00→22:45)
[2021-12-19] MEDS: FUROSEMIDE 40 MG/4 ML VIAL IV SCH (06:00)
[2021-12-19] MEDS: SUCRALFATE 1 GM TAB PO SCH ×4 (06:48→22:45)
[2021-12-19 06:53] LABS: Basophils # (auto) 0.1 10 ^3/uL (0-0.2); Basophils % (auto) 0.8 % (0.0-2.0); Eosinophils # (auto) 0.1 10 ^3/uL (0-0.8); Eosinophils % (auto) 2.1 % (0.0-7.0); Hematocrit 32.1 % (41.0-53.0); Hemoglobin 10.9 g/dL (13.5-17.5); Lymphocytes # (auto) 1.9 10 ^3/uL (0.4-5.4); Lymphocytes % (auto) 30.2 % (10.0-50.0); Mean Corpuscular Hemoglobin 33.3 pg (28.0-32.0); Mean Corpuscular Hgb Conc. 33.9 g/dL (32.0-36.0); Mean Corpuscular Volume 98.2 fL (80.0-100.0); Monocytes # (auto) 0.6 10 ^3/uL (0-1.3); Monocytes % (auto) 9.9 % (0.0-12.0); Neutrophils # (auto) 3.7 10 ^3/uL (1.6-8.6); Nucleated Red Blood Cells % 0.1 %; Red Blood Cells 3.27 10^6/uL (4.5-5.90); Red Cell Distribution Width 14.6 % (11.8-14.3); White Blood Cell 6.4 10^3/uL (4.4-10.8)
[2021-12-19 07:09] LABS: BUN/Creatinine Ratio 14.4; Calcium 8.8 mg/dL (8.5-10.1); Magnesium 2.2 mg/dL (1.6-2.6); Potassium 4.3 mmol/L (3.5-5.1)
[2021-12-19 07:36] LABS: INR 1.1 (0.9-1.15); Partial Thromboplastin Time 46.8 sec (23.6-33.0)
[2021-12-19] MEDS ORDERED: HEPARIN DRIP/D5W 100UNITS/ML 250 ML IV SCH (09:00)
[2021-12-19 09:49] LABS: Urine WBC None Seen /hpf (0 - 3)
[2021-12-19] MEDS: CARVEDILOL 3.125 MG TAB PO SCH ×3 (10:00→22:45)
[2021-12-19] MEDS ORDERED: ASPirin 81 mg TAB PO SCH (10:00)
[2021-12-19 10:19] LABS: Urine Bacteria NONE SEEN /hpf (None Seen); Urine Blood Negative /uL (Negative); Urine Specific Gravity 1.006 (1.001-1.035)
[2021-12-19 10:24] LABS: Sodium Urine 122 mmol/L (40-220)
[2021-12-19 10:37] LABS: Creatinine, Urine 11 mg/dL (30.0-125.0)
[2021-12-19] MEDS: CLOPIDOGREL BISULFATE 75 MG TAB PO SCH (10:50)
[2021-12-19] MEDS: PANTOPRAZOLE 40 MG TAB PO SCH (10:50)
[2021-12-19] MEDS: DOCUSATE SOD 100 MG CAP PO PRN (10:50)
[2021-12-19] MEDS: GABAPENTIN 300 MG CAP PO SCH ×2 (10:50→22:46)
[2021-12-19] MEDS: POTASSIUM CHL 10 Meq TABLET PO SCH ×2 (10:50→22:46)
[2021-12-19] MEDS: amLODIPine BESYLATE 5 MG TAB PO SCH (10:53)
[2021-12-19] MEDS: NITROGLYCERIN 0.2MG/HR TOPICAL PATCH TD SCH (10:55)
[2021-12-19] MEDS: SODIUM CHLORIDE 0.9% 1,000 ML IV SCH (10:55)
[2021-12-19] MEDS ORDERED: POLYETHYLENE GLYCOL 17 GM PWDR PO PRN (11:00)
[2021-12-19] MEDS: ASPirin 325 MG TAB PO SCH (11:32)
[2021-12-19] MEDS: ALLOPURINOL 100 MG TAB PO SCH (22:46)
[2021-12-19] MEDS: ATORVASTATIN 20 MG TAB PO SCH (22:46)
[2021-12-20] MEDS: SODIUM CHLORIDE 0.9% 1,000 ML IV SCH ×2 (04:02→20:45)
[2021-12-20 05:00] VITALS: BP 144/71
[2021-12-20 06:32] LABS: Calcium 8.7 mg/dL (8.5-10.1); Magnesium 2.2 mg/dL (1.6-2.6); Potassium 4.3 mmol/L (3.5-5.1)
[2021-12-20 06:34] LABS: BUN/Creatinine Ratio 16.2
[2021-12-20] MEDS: SODIUM CHLOR 0.9% PF (SALINE LOCK) 10ML VIAL/SYR IV SCH ×3 (06:35→21:50)
[2021-12-20] MEDS: SUCRALFATE 1 GM TAB PO SCH ×4 (06:35→21:50)
[2021-12-20 08:38] VITALS: BP 153/83
[2021-12-20] MEDS: ASPirin 325 MG TAB PO SCH (09:39)
[2021-12-20] MEDS: CARVEDILOL 3.125 MG TAB PO SCH ×2 (09:40→22:56)
[2021-12-20] MEDS: POTASSIUM CHL 10 Meq TABLET PO SCH ×2 (09:40→22:01)
[2021-12-20] MEDS: amLODIPine BESYLATE 5 MG TAB PO SCH (09:40)
[2021-12-20] MEDS: GABAPENTIN 300 MG CAP PO SCH ×2 (09:40→22:02)
[2021-12-20] MEDS: CLOPIDOGREL BISULFATE 75 MG TAB PO SCH (09:40)
[2021-12-20] MEDS: PANTOPRAZOLE 40 MG TAB PO SCH (09:41)
[2021-12-20] MEDS: NITROGLYCERIN 0.2MG/HR TOPICAL PATCH TD SCH (09:41)
[2021-12-20] MEDS ORDERED: IOHEXOL 350 MG/ML 100ML IJ ONE (10:14)
[2021-12-20] MEDS ORDERED: LIDOCAINE 2%HCL (LOCAL ANESTH.) INJ 10ml MDV ONE (10:14)
[2021-12-20 13:00] VITALS: BP 140/72
[2021-12-20 17:00] VITALS: BP 136/69
[2021-12-20 20:00] VITALS: BP 145/72
[2021-12-20] MEDS: ATORVASTATIN 20 MG TAB PO SCH (22:02)
[2021-12-20] MEDS: ALLOPURINOL 100 MG TAB PO SCH (22:02)
[2021-12-20] MEDS: DOCUSATE SOD 100 MG CAP PO PRN (22:24)
[2021-12-20 22:54] VITALS: BP 164/72
[2021-12-21 05:00] VITALS: BP 150/72
[2021-12-21 05:27] VITALS: BP 160/86
[2021-12-21] MEDS: SODIUM CHLOR 0.9% PF (SALINE LOCK) 10ML VIAL/SYR IV SCH (06:20)
[2021-12-21] MEDS: SUCRALFATE 1 GM TAB PO SCH (06:21)
[2021-12-21 08:46] VITALS: BP 152/74
[2021-12-21] MEDS: CARVEDILOL 3.125 MG TAB PO SCH (09:27)
[2021-12-21] MEDS: ASPirin 325 MG TAB PO SCH (09:27)
[2021-12-21] MEDS: NITROGLYCERIN 0.2MG/HR TOPICAL PATCH TD SCH (09:28)
[2021-12-21] MEDS: CLOPIDOGREL BISULFATE 75 MG TAB PO SCH (09:28)
[2021-12-21] MEDS: amLODIPine BESYLATE 5 MG TAB PO SCH (09:28)
[2021-12-21] MEDS: POTASSIUM CHL 10 Meq TABLET PO SCH (09:28)
[2021-12-21] MEDS: GABAPENTIN 300 MG CAP PO SCH (09:28)
[2021-12-21] MEDS: PANTOPRAZOLE 40 MG TAB PO SCH (09:28)
[2021-12-21 10:18] VITALS: BP 152/74
== END 2021-12-21 12:36 | disposition home or self-care (01) | DRG 190 ==
LOC: EDBD 19:17 → ER 19:17 → EDUNIT# 19:17 → TELE 23:01 → TELE-WESTW 12-17 02:13
PROVIDERS: ADMIT Nurse Practitioner Family; ATTEND Internal Medicine
DX: I21.4 Non-ST elevation (NSTEMI) myocardial infarction (principal); N17.0 Acute kidney failure with tubular necrosis; I50.43 Acute on chronic combined systolic (congestive) and diastolic (congestive) heart failure; E11.22 Type 2 diabetes mellitus with diabetic chronic kidney disease; E11.51 Type 2 diabetes mellitus with diabetic peripheral angiopathy without gangrene; D63.8 Anemia in other chronic diseases classified elsewhere; E78.5 Hyperlipidemia, unspecified; I13.0 Hypertensive heart and chronic kidney disease with heart failure and stage 1 through stage 4 chronic kidney disease, or unspecified chronic kidney disease; I16.1 Hypertensive emergency; I89.0 Lymphedema, not elsewhere classified; N18.31 Chronic kidney disease, stage 3a; F12.90 Cannabis use, unspecified, uncomplicated; F17.210 Nicotine dependence, cigarettes, uncomplicated; G89.29 Other chronic pain; Z20.822 Contact with and (suspected) exposure to COVID-19; R00.0 Tachycardia, unspecified; Z53.29 Procedure and treatment not carried out because of patient's decision for other reasons; I25.10 Atherosclerotic heart disease of native coronary artery without angina pectoris; I25.2 Old myocardial infarction; J45.909 Unspecified asthma, uncomplicated; Z80.3 Family history of malignant neoplasm of breast; Z80.8 Family history of malignant neoplasm of other organs or systems; Z82.49 Family history of ischemic heart disease and other diseases of the circulatory system; Z83.3 Family history of diabetes mellitus; Z86.73 Personal history of transient ischemic attack (TIA), and cerebral infarction without residual deficits; Z95.1 Presence of aortocoronary bypass graft; Z88.1 Allergy status to other antibiotic agents
CPT/HCPCS: 36415; 71045; 76775; 80048; 80053; 81001; 82550; 82570; 83605; 83735; 83880; 84133; 84300; 84484; 85025; 85610; 85730; 93005; 93925; 96372; 96374; 96375; 99291; G0378; J2001; J2405; J3490

== ENCOUNTER 2022-08-13 11:30 | Inpatient (IN) | payer MEDICARE, MEDICAID ==
[~2022-08-13] VITALS: Ht 177.8 cm; Wt 88.0 kg
[~2022-08-13 11:30] MED LIST changes: +ALBUAER3 IN; +ALIR75IN2 SC; +CLOP75TA28 PO; +NITR0.4S29 SL; +OMEG100078 PO; +SUCR1TAB PO; +TRAM50TA2 PO
[2022-08-13] MEDS ORDERED: SODIUM CHLORIDE 0.9% 1,000 ML IV ONE (12:15)
[2022-08-13 13:10] LABS: Basophils # (auto) 0 10 ^3/uL (0-0.2); Basophils % (auto) 0.4 % (0.0-2.0); Eosinophils # (auto) 0 10 ^3/uL (0-0.8); Eosinophils % (auto) 0.7 % (0.0-7.0); Hematocrit 30.2 % (41.0-53.0); Hemoglobin 9.7 g/dL (13.5-17.5); Lymphocytes # (auto) 1.1 10 ^3/uL (0.4-5.4); Lymphocytes % (auto) 17.5 % (10.0-50.0); Mean Corpuscular Hemoglobin 31.1 pg (28.0-32.0); Mean Corpuscular Hgb Conc. 32.2 g/dL (32.0-36.0); Mean Corpuscular Volume 96.8 fL (80.0-100.0); Monocytes # (auto) 0.6 10 ^3/uL (0-1.3); Monocytes % (auto) 9.8 % (0.0-12.0); Neutrophils # (auto) 4.6 10 ^3/uL (1.6-8.6); Neutrophils % (auto) 71.6 % (37.0-80.0); Red Blood Cells 3.12 10^6/uL (4.5-5.90); Red Cell Distribution Width 16.5 % (11.8-14.3); White Blood Cell 6.5 10^3/uL (4.4-10.8)
[2022-08-13 13:25] LABS: INR 1.09 (0.9-1.15); Partial Thromboplastin Time 27.6 sec (24.6-33.4)
[2022-08-13 13:57] LABS: Albumin 3.5 g/dL (3.4-5.0); BUN/Creatinine Ratio 14.9; Magnesium 2.4 mg/dL (1.6-2.6); Potassium 4.5 mmol/L (3.5-5.1)
[2022-08-13 14:01] LABS: Bilirubin, Total 0.5 mg/dL (0.2-1.0); Total Protein 6.9 g/dL (6.4-8.2)
[2022-08-13] MEDS ORDERED: ENOXAPARIN SOD 80 MG/0.8ML SYRINGE SC ONE (15:00)
[2022-08-13] MEDS ORDERED: SUCRALFATE 1 GM/10 ML ORAL SUSP PO ONE (15:15)
[2022-08-13] MEDS ORDERED: MORPHINE SULFATE INJ 2 MG/ml SYRG IV PRN (15:30)
[2022-08-13] MEDS ORDERED: NITROGLYCERIN 0.4 MG SL TAB SL PRN (15:30)
[2022-08-13] MEDS ORDERED: DEXTROSE (50%) 50ML SYRG IV ONE (15:30)
[2022-08-13] MEDS ORDERED: PANTOPRAZOLE 40 MG/10 ML VIAL INJ IV ONE (15:30)
[2022-08-13] MEDS ORDERED: FUROSEMIDE 40 MG/4 ML VIAL IV ONE (15:45)
[2022-08-13] MEDS ORDERED: SPIRONOLACTONE 25 MG TAB PO ONE (15:45)
[2022-08-13] MEDS ORDERED: FUROSEMIDE 20 MG/2 ML VIAL IV ONE (16:15)
[2022-08-13] MEDS ORDERED: DEXTROSE (50%) 50ML SYRG IV PRN (16:15)
[2022-08-13] MEDS ORDERED: InsuLIN REG 1unit/0.01ml Soln (100units/ml) SC ONE (17:00)
[2022-08-13] MEDS ORDERED: ACCU-CHEK COMFORT CURVE STRIP VI ONE (17:00)
[2022-08-13 17:07] LABS: Urine Bacteria NONE SEEN /hpf (None Seen); Urine Blood Negative /uL (Negative); Urine Hyaline Cast FEW /lpf (0 - 2); Urine Specific Gravity 1.017 (1.001-1.035); Urine WBC 1 /hpf (0 - 3)
[2022-08-13 17:08] VITALS: BP 193/88
[2022-08-13] MEDS: ALBUTEROL SULF 2.5 MG/0.5ML(0.5%) NEB SOLN NEB SCH (18:43)
[2022-08-13] MEDS: IPRATROPIUM BROM 0.5 MG/2.5ML INH SOL NEB SCH (18:43)
[2022-08-13] MEDS: hydrALAZINE HCL 20 MG/ML VL IV PRN ×2 (20:21→20:58)
[2022-08-13 20:40] VITALS: BP 233/101
[2022-08-13] MEDS: LORazepam 2MG/ML-1ML VIAL IV PRN (21:45)
[2022-08-13] MEDS: SODIUM CHLOR 0.9% PF (SALINE LOCK) 10ML VIAL/SYR IV SCH (22:00)
[2022-08-13] MEDS: ENOXAPARIN SOD 80 MG/0.8ML SYRINGE SC SCH (22:28)
[2022-08-13] MEDS: SUCRALFATE 1 GM TAB PO SCH ×2 (22:29→22:39)
[2022-08-13] MEDS: POTASSIUM CHL 10 Meq TABLET PO SCH (22:29)
[2022-08-13] MEDS: ATORVASTATIN 20 MG TAB PO SCH (22:29)
[2022-08-13] MEDS: GABAPENTIN 300 MG CAP PO SCH (22:33)
[2022-08-13 22:50] VITALS: BP 180/71
[2022-08-13] MEDS ORDERED: ONDANSETRON HCL 4 MG/2 ML VIAL ONE (22:55)
[2022-08-13] MEDS ORDERED: ONDANSETRON HCL 4 MG/2 ML VIAL IV PRN (23:00)
[2022-08-14] VITALS (24 sets, daily range): BP systolic 124–195; BP diastolic 41–77
[2022-08-14] MEDS ORDERED: LABETALOL HCL 5 MG/ML 4ML SYRINGE IV ONE (00:30)
[2022-08-14] MEDS: IPRATROPIUM BROM 0.5 MG/2.5ML INH SOL NEB SCH ×2 (00:31→18:40)
[2022-08-14] MEDS: ALBUTEROL SULF 2.5 MG/0.5ML(0.5%) NEB SOLN NEB SCH ×2 (00:31→18:40)
[2022-08-14 06:20] LABS: Basophils # (auto) 0.1 10 ^3/uL (0-0.2); Basophils % (auto) 0.4 % (0.0-2.0); Eosinophils # (auto) 0 10 ^3/uL (0-0.8); Hematocrit 28.7 % (41.0-53.0); Hemoglobin 9.2 g/dL (13.5-17.5); Lymphocytes % (auto) 8.5 % (10.0-50.0); Mean Corpuscular Hemoglobin 31.8 pg (28.0-32.0); Mean Corpuscular Hgb Conc. 32.1 g/dL (32.0-36.0); Mean Corpuscular Volume 99.3 fL (80.0-100.0); Monocytes # (auto) 0.7 10 ^3/uL (0-1.3); Monocytes % (auto) 6.3 % (0.0-12.0); Neutrophils % (auto) 84.8 % (37.0-80.0); Red Blood Cells 2.89 10^6/uL (4.5-5.90); Red Cell Distribution Width 16.3 % (11.8-14.3); White Blood Cell 11.8 10^3/uL (4.4-10.8)
[2022-08-14] MEDS: METOCLOPRAMIDE HCL 5MG/ml INJ 2ml VIAL IV SCH ×3 (06:21→22:29)
[2022-08-14 06:34] LABS: Albumin 3.2 g/dL (3.4-5.0)
[2022-08-14 06:50] LABS: BUN/Creatinine Ratio 14.7; Bilirubin, Total 0.7 mg/dL (0.2-1.0); Total Protein 6.3 g/dL (6.4-8.2)
[2022-08-14] MEDS: SUCRALFATE 1 GM TAB PO SCH ×4 (07:10→22:29)
[2022-08-14] MEDS: PANTOPRAZOLE 40 MG/10 ML VIAL INJ IV SCH (07:58)
[2022-08-14] MEDS: CLOPIDOGREL BISULFATE 75 MG TAB PO SCH (07:59)
[2022-08-14] MEDS: ENOXAPARIN SOD 80 MG/0.8ML SYRINGE SC SCH (07:59)
[2022-08-14] MEDS: GABAPENTIN 300 MG CAP PO SCH ×2 (07:59→22:29)
[2022-08-14] MEDS: amLODIPine BESYLATE 5 MG TAB PO SCH (07:59)
[2022-08-14] MEDS: POTASSIUM CHL 10 Meq TABLET PO SCH (08:00)
[2022-08-14] MEDS: ALLOPURINOL 300 MG TAB PO SCH (08:02)
[2022-08-14] MEDS ORDERED: FUROSEMIDE 20 MG/2 ML VIAL IV SCH (10:00)
[2022-08-14] MEDS: FUROSEMIDE 20 MG/2 ML VIAL IV SCH ×2 (15:41→22:00)
[2022-08-14] MEDS: ATORVASTATIN 20 MG TAB PO SCH (18:00)
[2022-08-14] MEDS: SODIUM CHLOR 0.9% PF (SALINE LOCK) 10ML VIAL/SYR IV SCH (22:00)
[2022-08-15] VITALS (92 sets, daily range): BP systolic 112–185; BP diastolic 37–78
[2022-08-15] MEDS: ALBUTEROL SULF 2.5 MG/0.5ML(0.5%) NEB SOLN NEB SCH ×5 (00:17→23:51)
[2022-08-15] MEDS: IPRATROPIUM BROM 0.5 MG/2.5ML INH SOL NEB SCH ×5 (00:17→23:51)
[2022-08-15] MEDS: hydrALAZINE HCL 20 MG/ML VL IV PRN (03:14)
[2022-08-15] MEDS: SODIUM CHLOR 0.9% PF (SALINE LOCK) 10ML VIAL/SYR IV SCH ×3 (05:33→22:02)
[2022-08-15 05:48] LABS: Basophils # (auto) 0 10 ^3/uL (0-0.2); Basophils % (auto) 0.3 % (0.0-2.0); Eosinophils # (auto) 0.1 10 ^3/uL (0-0.8); Eosinophils % (auto) 0.7 % (0.0-7.0); Hematocrit 28.4 % (41.0-53.0); Hemoglobin 9.3 g/dL (13.5-17.5); Lymphocytes # (auto) 1.4 10 ^3/uL (0.4-5.4); Lymphocytes % (auto) 14.2 % (10.0-50.0); Mean Corpuscular Hemoglobin 31.8 pg (28.0-32.0); Mean Corpuscular Hgb Conc. 32.6 g/dL (32.0-36.0); Mean Corpuscular Volume 97.7 fL (80.0-100.0); Monocytes # (auto) 1.2 10 ^3/uL (0-1.3); Monocytes % (auto) 11.5 % (0.0-12.0); Neutrophils # (auto) 7.4 10 ^3/uL (1.6-8.6); Neutrophils % (auto) 73.3 % (37.0-80.0); Nucleated Red Blood Cells % 0.1 %; Red Blood Cells 2.91 10^6/uL (4.5-5.90); Red Cell Distribution Width 16.5 % (11.8-14.3); White Blood Cell 10.2 10^3/uL (4.4-10.8)
[2022-08-15 06:04] LABS: BUN/Creatinine Ratio 16.9; Calcium 8.7 mg/dL (8.5-10.1); Potassium 4.3 mmol/L (3.5-5.1)
[2022-08-15] MEDS: METOCLOPRAMIDE HCL 5MG/ml INJ 2ml VIAL IV SCH ×3 (06:13→22:02)
[2022-08-15] MEDS: LORazepam 2MG/ML-1ML VIAL IV PRN (06:14)
[2022-08-15] MEDS: SUCRALFATE 1 GM TAB PO SCH ×4 (06:14→22:02)
[2022-08-15] MEDS: FUROSEMIDE 20 MG/2 ML VIAL IV SCH ×2 (10:00→22:01)
[2022-08-15] MEDS: GABAPENTIN 300 MG CAP PO SCH ×2 (10:00→22:02)
[2022-08-15] MEDS: ENOXAPARIN SOD 80 MG/0.8ML SYRINGE SC SCH (10:00)
[2022-08-15] MEDS: PANTOPRAZOLE 40 MG/10 ML VIAL INJ IV SCH (10:00)
[2022-08-15] MEDS: amLODIPine BESYLATE 5 MG TAB PO SCH (10:00)
[2022-08-15] MEDS: CLOPIDOGREL BISULFATE 75 MG TAB PO SCH (10:00)
[2022-08-15] MEDS: ALLOPURINOL 300 MG TAB PO SCH (10:00)
[2022-08-15] MEDS ORDERED: ROCURONIUM 10MG/ML 10ML VIAL IV ONE ×2 (10:29→11:45)
[2022-08-15] MEDS ORDERED: fentaNYL Drip 2500mCg/250mlNS 250 ML IV ONE (10:29)
[2022-08-15] MEDS ORDERED: ETOMIDATE (2MG/ML) 20ML VIAL IV ONE ×2 (10:29→11:45)
[2022-08-15] MEDS: fentaNYL Drip 2500mCg/250mlNS 250 ML IV SCH (10:45)
[2022-08-15] MEDS: MIDAZOLAM DRIP 50 mg/50mL 50 ML IV SCH (10:45)
[2022-08-15] MEDS: cefTRIAXone 1GM/50ML D5W 50 ML IV SCH (10:56)
[2022-08-15] MEDS: NOREPINEPHRINE 8 MG/250ML KIT 250 ML IV SCH (11:45)
[2022-08-15] MEDS: AZITHROMYCIN 500MG/ 250ML 250 ML IV SCH (12:00)
[2022-08-15] MEDS: ATORVASTATIN 20 MG TAB PO SCH (17:49)
[2022-08-15] MEDS: FUROSEMIDE 40 MG/4 ML VIAL IV SCH (17:49)
[2022-08-16] VITALS (106 sets, daily range): BP systolic 90–131; BP diastolic 33–48
[2022-08-16] MEDS: fentaNYL Drip 2500mCg/250mlNS 250 ML IV SCH ×3 (00:22→22:04)
[2022-08-16 04:03] LABS: Basophils # (auto) 0 10 ^3/uL (0-0.2); Eosinophils # (auto) 0.1 10 ^3/uL (0-0.8); Hematocrit 25.7 % (41.0-53.0); Lymphocytes # (auto) 0.8 10 ^3/uL (0.4-5.4); Mean Corpuscular Hemoglobin 31.8 pg (28.0-32.0); Red Blood Cells 2.62 10^6/uL (4.5-5.90); White Blood Cell 7.8 10^3/uL (4.4-10.8)
[2022-08-16 04:05] LABS: Basophils % (auto) 0.2 % (0.0-2.0); Eosinophils % (auto) 1.1 % (0.0-7.0); Hemoglobin 8.3 g/dL (13.5-17.5); Lymphocytes % (auto) 9.8 % (10.0-50.0); Mean Corpuscular Hgb Conc. 32.3 g/dL (32.0-36.0); Mean Corpuscular Volume 98.4 fL (80.0-100.0); Monocytes % (auto) 12.8 % (0.0-12.0); Neutrophils % (auto) 76.1 % (37.0-80.0); Red Cell Distribution Width 15.9 % (11.8-14.3)
[2022-08-16 04:15] LABS: Calcium 8.1 mg/dL (8.5-10.1); Potassium 4.9 mmol/L (3.5-5.1)
[2022-08-16] MEDS: METOCLOPRAMIDE HCL 5MG/ml INJ 2ml VIAL IV SCH ×3 (05:36→21:48)
[2022-08-16] MEDS: FUROSEMIDE 40 MG/4 ML VIAL IV SCH ×2 (05:36→17:06)
[2022-08-16] MEDS: SODIUM CHLOR 0.9% PF (SALINE LOCK) 10ML VIAL/SYR IV SCH ×3 (05:36→22:03)
[2022-08-16] MEDS: ALBUTEROL SULF 2.5 MG/0.5ML(0.5%) NEB SOLN NEB SCH ×4 (06:22→23:42)
[2022-08-16] MEDS: IPRATROPIUM BROM 0.5 MG/2.5ML INH SOL NEB SCH ×4 (06:22→23:42)
[2022-08-16] MEDS: MIDAZOLAM DRIP 50 mg/50mL 50 ML IV SCH ×2 (06:23→17:11)
[2022-08-16] MEDS: SUCRALFATE 1 GM TAB PO SCH ×4 (06:30→21:48)
[2022-08-16] MEDS: cefTRIAXone 1GM/50ML D5W 50 ML IV SCH (09:00)
[2022-08-16] MEDS: CLOPIDOGREL BISULFATE 75 MG TAB PO SCH (09:37)
[2022-08-16] MEDS: FUROSEMIDE 20 MG/2 ML VIAL IV SCH ×2 (09:37→21:48)
[2022-08-16] MEDS: PANTOPRAZOLE 40 MG/10 ML VIAL INJ IV SCH (09:37)
[2022-08-16] MEDS: GABAPENTIN 300 MG CAP PO SCH ×2 (09:37→21:48)
[2022-08-16] MEDS: amLODIPine BESYLATE 5 MG TAB PO SCH (09:37)
[2022-08-16] MEDS: AZITHROMYCIN 500MG/ 250ML 250 ML IV SCH (09:38)
[2022-08-16] MEDS: ENOXAPARIN SOD 80 MG/0.8ML SYRINGE SC SCH (09:38)
[2022-08-16] MEDS: ALLOPURINOL 300 MG TAB PO SCH (09:38)
[2022-08-16 09:47] LABS: INR 1.09 (0.9-1.15); Partial Thromboplastin Time 34.3 sec (24.6-33.4)
[2022-08-16] MEDS ORDERED: AZITHROMYCIN 500MG/ 250ML 250 ML IV SCH (10:00)
[2022-08-16] MEDS: NOREPINEPHRINE 8 MG/250ML KIT 250 ML IV SCH (11:45)
[2022-08-16] MEDS ORDERED: ALBUAER3 IN (11:57)
[2022-08-16] MEDS ORDERED: METO2.5T PO (11:57)
[2022-08-16] MEDS ORDERED: OME20T PO (11:57)
[2022-08-16] MEDS ORDERED: BUDE1AER4 IN (11:57)
[2022-08-16] MEDS ORDERED: CLON0.1T PO (11:57)
[2022-08-16] MEDS ORDERED: POM PO (11:57)
[2022-08-16] MEDS ORDERED: SENN-62 PO (11:57)
[2022-08-16] MEDS ORDERED: IPRIH INH (11:57)
[2022-08-16] MEDS ORDERED: ATOR40TA52 PO (11:57)
[2022-08-16] MEDS ORDERED: FURO40TA4 PO (11:57)
[2022-08-16] MEDS ORDERED: ONDA-144 PO (11:57)
[2022-08-16] MEDS ORDERED: AMLO-496 PO (11:57)
[2022-08-16] MEDS ORDERED: EVOL140I SC (11:57)
[2022-08-16] MEDS ORDERED: IPRA0.00 IN (11:57)
[2022-08-16] MEDS ORDERED: POTA10TA32 PO (12:48)
[2022-08-16] MEDS ORDERED: BISA1TAB6 PO (12:48)
[2022-08-16] MEDS: SODIUM CHLORIDE 0.9% 1,000 ML IV SCH (15:22)
[2022-08-16 16:12] LABS: Urine Amorphous Crystal FEW /hpf (None Seen); Urine Bacteria NONE SEEN /hpf (None Seen); Urine Blood 3+ /uL (Negative); Urine Specific Gravity 1.017 (1.001-1.035); Urine WBC 120 /hpf (0 - 3)
[2022-08-16] MEDS: ATORVASTATIN 20 MG TAB PO SCH (18:00)
[2022-08-17] VITALS (106 sets, daily range): BP systolic 76–122; BP diastolic 30–49
[2022-08-17 05:17] LABS: Basophils # (auto) 0 10 ^3/uL (0-0.2); Basophils % (auto) 0.1 % (0.0-2.0); Eosinophils # (auto) 0 10 ^3/uL (0-0.8); Lymphocytes # (auto) 0.9 10 ^3/uL (0.4-5.4); Red Cell Distribution Width 16.1 % (11.8-14.3)
[2022-08-17 05:19] LABS: Eosinophils % (auto) 0.2 % (0.0-7.0); Hematocrit 24.5 % (41.0-53.0); Lymphocytes % (auto) 9.7 % (10.0-50.0); Mean Corpuscular Hemoglobin 32.9 pg (28.0-32.0); Mean Corpuscular Hgb Conc. 32.5 g/dL (32.0-36.0); Mean Corpuscular Volume 101.4 fL (80.0-100.0); Monocytes % (auto) 9.9 % (0.0-12.0); Neutrophils # (auto) 7.7 10 ^3/uL (1.6-8.6); Neutrophils % (auto) 80.1 % (37.0-80.0); Nucleated Red Blood Cells % 0.5 %; Red Blood Cells 2.42 10^6/uL (4.5-5.90); White Blood Cell 9.6 10^3/uL (4.4-10.8)
[2022-08-17 05:24] LABS: Calcium 7.8 mg/dL (8.5-10.1)
[2022-08-17 05:27] LABS: BUN/Creatinine Ratio 13.1
[2022-08-17] MEDS: METOCLOPRAMIDE HCL 5MG/ml INJ 2ml VIAL IV SCH ×3 (05:47→21:39)
[2022-08-17] MEDS: FUROSEMIDE 40 MG/4 ML VIAL IV SCH (05:47)
[2022-08-17] MEDS: SODIUM CHLOR 0.9% PF (SALINE LOCK) 10ML VIAL/SYR IV SCH ×4 (05:47→21:39)
[2022-08-17] MEDS: SODIUM CHLORIDE 0.9% 1,000 ML IV SCH (05:54)
[2022-08-17 06:00] LABS: Potassium 5.7 mmol/L (3.5-5.1)
[2022-08-17] MEDS: SUCRALFATE 1 GM TAB PO SCH ×4 (06:30→21:38)
[2022-08-17] MEDS: IPRATROPIUM BROM 0.5 MG/2.5ML INH SOL NEB SCH ×3 (06:32→20:49)
[2022-08-17] MEDS: ALBUTEROL SULF 2.5 MG/0.5ML(0.5%) NEB SOLN NEB SCH ×3 (06:32→20:49)
[2022-08-17] MEDS ORDERED: SODIUM ZIRCONIUM CYCL 10 GM PAK PO ONE (06:45)
[2022-08-17] MEDS: cefTRIAXone 1GM/50ML D5W 50 ML IV SCH (08:29)
[2022-08-17] MEDS ORDERED: CALCIUM GLUC 1,000mg/50ml-NS 50 ML IV ONE (09:30)
[2022-08-17] MEDS ORDERED: DEXTROSE (50%) 50ML SYRG IV ONE (09:30)
[2022-08-17] MEDS ORDERED: InsuLIN REG 1unit/0.01ml Soln (100units/ml) IV ONE (09:30)
[2022-08-17] MEDS: CLOPIDOGREL BISULFATE 75 MG TAB PO SCH (09:36)
[2022-08-17] MEDS: GABAPENTIN 300 MG CAP PO SCH ×2 (09:36→21:38)
[2022-08-17] MEDS: PANTOPRAZOLE 40 MG/10 ML VIAL INJ IV SCH (09:36)
[2022-08-17] MEDS: AZITHROMYCIN 500MG/ 250ML 250 ML IV SCH (09:36)
[2022-08-17] MEDS: ENOXAPARIN SOD 80 MG/0.8ML SYRINGE SC SCH (09:36)
[2022-08-17] MEDS: FUROSEMIDE 20 MG/2 ML VIAL IV SCH ×2 (09:45→21:38)
[2022-08-17] MEDS: ALLOPURINOL 300 MG TAB PO SCH (09:46)
[2022-08-17] MEDS: amLODIPine BESYLATE 5 MG TAB PO SCH (10:00)
[2022-08-17 10:46] LABS: Urine Bacteria NONE SEEN /hpf (None Seen); Urine Blood 3+ /uL (Negative); Urine Budding Yeast MANY /hpf (None Seen); Urine Hyaline Cast MANY /lpf (0 - 2); Urine Mucus FEW (None Seen); Urine Specific Gravity 1.017 (1.001-1.035); Urine WBC 491 /hpf (0 - 3); Urine WBC Clumps PRESENT /hpf (None Seen)
[2022-08-17 11:00] LABS: Creatinine, Urine 214 mg/dL (30.0-125.0); Sodium Urine 18 mmol/L (40-220)
[2022-08-17] MEDS: DOPamine 1600MCG/ML D5W 250 ML IV SCH (11:13)
[2022-08-17] MEDS: SODIUM BICARB 50ML SYR 50 ML in SOD CHL 0.45% 1,000 ML IV SCH (11:13)
[2022-08-17] MEDS ORDERED: LIDOCAINE 1% (LOCAL ANESTH.) PF 5ml SDV ID ONE (11:15)
[2022-08-17] MEDS: NOREPINEPHRINE 8 MG/250ML KIT 250 ML IV SCH (11:35)
[2022-08-17] MEDS: fentaNYL Drip 2500mCg/250mlNS 250 ML IV SCH (11:57)
[2022-08-17] MEDS: SODIUM ZIRCONIUM CYCL 10 GM PAK PO SCH ×2 (13:32→21:37)
[2022-08-17] MEDS: ATORVASTATIN 20 MG TAB PO SCH (17:42)
[2022-08-18] VITALS (106 sets, daily range): BP systolic 110–163; BP diastolic 45–92
[2022-08-18] MEDS: SODIUM BICARB 50ML SYR 50 ML in SOD CHL 0.45% 1,000 ML IV SCH ×2 (00:54→14:23)
[2022-08-18] MEDS: ALBUTEROL SULF 2.5 MG/0.5ML(0.5%) NEB SOLN NEB SCH ×4 (01:05→18:47)
[2022-08-18] MEDS: IPRATROPIUM BROM 0.5 MG/2.5ML INH SOL NEB SCH ×4 (01:05→18:47)
[2022-08-18 04:24] LABS: Basophils # (auto) 0 10 ^3/uL (0-0.2); Eosinophils # (auto) 0.2 10 ^3/uL (0-0.8); Hemoglobin 8.3 g/dL (13.5-17.5); Lymphocytes # (auto) 0.5 10 ^3/uL (0.4-5.4); Monocytes # (auto) 0.5 10 ^3/uL (0-1.3); Red Cell Distribution Width 16.1 % (11.8-14.3)
[2022-08-18 04:26] LABS: Basophils % (auto) 0.5 % (0.0-2.0); Eosinophils % (auto) 2.3 % (0.0-7.0); Hematocrit 25.6 % (41.0-53.0); Lymphocytes % (auto) 6.3 % (10.0-50.0); Mean Corpuscular Hemoglobin 31.4 pg (28.0-32.0); Mean Corpuscular Hgb Conc. 32.3 g/dL (32.0-36.0); Mean Corpuscular Volume 97.3 fL (80.0-100.0); Monocytes % (auto) 5.5 % (0.0-12.0); Neutrophils # (auto) 7.5 10 ^3/uL (1.6-8.6); Neutrophils % (auto) 85.4 % (37.0-80.0); Nucleated Red Blood Cells % 0.7 %; Red Blood Cells 2.63 10^6/uL (4.5-5.90); White Blood Cell 8.7 10^3/uL (4.4-10.8)
[2022-08-18 04:41] LABS: Potassium 4.1 mmol/L (3.5-5.1)
[2022-08-18 04:45] LABS: BUN/Creatinine Ratio 15.8
[2022-08-18] MEDS: METOCLOPRAMIDE HCL 5MG/ml INJ 2ml VIAL IV SCH ×3 (05:48→21:01)
[2022-08-18] MEDS: SODIUM CHLOR 0.9% PF (SALINE LOCK) 10ML VIAL/SYR IV SCH ×5 (05:48→21:02)
[2022-08-18] MEDS: SODIUM ZIRCONIUM CYCL 10 GM PAK PO SCH ×2 (05:49→13:43)
[2022-08-18] MEDS: fentaNYL Drip 2500mCg/250mlNS 250 ML IV SCH ×2 (07:17→18:14)
[2022-08-18] MEDS: SUCRALFATE 1 GM TAB PO SCH ×2 (07:35→11:30)
[2022-08-18] MEDS: cefTRIAXone 1GM/50ML D5W 50 ML IV SCH (08:32)
[2022-08-18] MEDS: ALLOPURINOL 300 MG TAB PO SCH (10:33)
[2022-08-18] MEDS: AZITHROMYCIN 500MG/ 250ML 250 ML IV SCH (10:33)
[2022-08-18] MEDS: ENOXAPARIN SOD 80 MG/0.8ML SYRINGE SC SCH (10:34)
[2022-08-18] MEDS: PANTOPRAZOLE 40 MG/10 ML VIAL INJ IV SCH (10:34)
[2022-08-18] MEDS: FUROSEMIDE 20 MG/2 ML VIAL IV SCH ×2 (10:34→21:01)
[2022-08-18] MEDS: CLOPIDOGREL BISULFATE 75 MG TAB PO SCH (10:35)
[2022-08-18] MEDS: GABAPENTIN 300 MG CAP PO SCH ×2 (10:35→21:00)
[2022-08-18] MEDS: amLODIPine BESYLATE 5 MG TAB PO SCH (10:35)
[2022-08-18] MEDS: DOPamine 1600MCG/ML D5W 250 ML IV SCH (10:36)
[2022-08-18] MEDS: MIDAZOLAM DRIP 50 mg/50mL 50 ML IV SCH (10:45)
[2022-08-18] MEDS: NOREPINEPHRINE 8 MG/250ML KIT 250 ML IV SCH (11:45)
[2022-08-18] MEDS: SUCRALFATE 1 GM/10 ML ORAL SUSP GT SCH ×2 (16:54→21:01)
[2022-08-18] MEDS: ATORVASTATIN 20 MG TAB PO SCH (17:45)
[2022-08-19] VITALS (100 sets, daily range): BP systolic 118–179; BP diastolic 50–88
[2022-08-19] MEDS: ALBUTEROL SULF 2.5 MG/0.5ML(0.5%) NEB SOLN NEB SCH ×4 (00:25→18:25)
[2022-08-19] MEDS: ACETAMINOPHEN 325 MG TAB PO PRN ×2 (00:25→11:37)
[2022-08-19] MEDS: IPRATROPIUM BROM 0.5 MG/2.5ML INH SOL NEB SCH ×4 (00:25→18:25)
[2022-08-19] MEDS: SODIUM BICARB 50ML SYR 50 ML in SOD CHL 0.45% 1,000 ML IV SCH ×2 (04:22→18:42)
[2022-08-19 04:31] LABS: Eosinophils # (auto) 0.2 10 ^3/uL (0-0.8); Hemoglobin 8.3 g/dL (13.5-17.5); Nucleated Red Blood Cells % 0.5 %; Red Cell Distribution Width 16.2 % (11.8-14.3); White Blood Cell 6.9 10^3/uL (4.4-10.8)
[2022-08-19 04:33] LABS: Basophils # (auto) 0 10 ^3/uL (0-0.2); Basophils % (auto) 0.5 % (0.0-2.0); Eosinophils % (auto) 3.1 % (0.0-7.0); Lymphocytes # (auto) 0.5 10 ^3/uL (0.4-5.4); Lymphocytes % (auto) 7.7 % (10.0-50.0); Mean Corpuscular Volume 96.9 fL (80.0-100.0); Monocytes # (auto) 0.8 10 ^3/uL (0-1.3); Monocytes % (auto) 12.1 % (0.0-12.0); Neutrophils # (auto) 5.3 10 ^3/uL (1.6-8.6); Neutrophils % (auto) 76.6 % (37.0-80.0); Red Blood Cells 2.69 10^6/uL (4.5-5.90)
[2022-08-19 04:49] LABS: Albumin 2.3 g/dL (3.4-5.0); BUN/Creatinine Ratio 19.7; Calcium 7.7 mg/dL (8.5-10.1); Magnesium 2.4 mg/dL (1.6-2.6); Potassium 4.8 mmol/L (3.5-5.1)
[2022-08-19 04:51] LABS: Bilirubin, Total 0.7 mg/dL (0.2-1.0); Total Protein 5.3 g/dL (6.4-8.2)
[2022-08-19] MEDS: fentaNYL Drip 2500mCg/250mlNS 250 ML IV SCH ×2 (05:42→22:46)
[2022-08-19] MEDS: METOCLOPRAMIDE HCL 5MG/ml INJ 2ml VIAL IV SCH ×3 (05:42→22:29)
[2022-08-19] MEDS: SODIUM CHLOR 0.9% PF (SALINE LOCK) 10ML VIAL/SYR IV SCH ×5 (05:43→22:29)
[2022-08-19] MEDS: SUCRALFATE 1 GM/10 ML ORAL SUSP GT SCH ×4 (06:29→22:28)
[2022-08-19] MEDS: cefTRIAXone 1GM/50ML D5W 50 ML IV SCH (09:24)
[2022-08-19] MEDS: DOPamine 1600MCG/ML D5W 250 ML IV SCH (09:30)
[2022-08-19] MEDS ORDERED: PIPERACILLIN-TAZOB 2.25GM 50 ML IV ONE (10:45)
[2022-08-19] MEDS: MIDAZOLAM DRIP 50 mg/50mL 50 ML IV SCH (10:45)
[2022-08-19] MEDS: AZITHROMYCIN 500MG/ 250ML 250 ML IV SCH (10:52)
[2022-08-19] MEDS: PANTOPRAZOLE 40 MG/10 ML VIAL INJ IV SCH (10:52)
[2022-08-19] MEDS: CLOPIDOGREL BISULFATE 75 MG TAB PO SCH (10:54)
[2022-08-19] MEDS: GABAPENTIN 300 MG CAP PO SCH ×2 (10:54→22:28)
[2022-08-19] MEDS: FUROSEMIDE 20 MG/2 ML VIAL IV SCH ×2 (10:54→22:28)
[2022-08-19] MEDS: amLODIPine BESYLATE 5 MG TAB PO SCH (10:54)
[2022-08-19] MEDS: ENOXAPARIN SOD 80 MG/0.8ML SYRINGE SC SCH (10:56)
[2022-08-19] MEDS: ALLOPURINOL 300 MG TAB PO SCH (11:22)
[2022-08-19] MEDS: NOREPINEPHRINE 8 MG/250ML KIT 250 ML IV SCH (11:45)
[2022-08-19] MEDS ORDERED: Jevity 1.2 Cal/Fiber 1 Liter GT SCH (14:15)
[2022-08-19] MEDS: ATORVASTATIN 20 MG TAB PO SCH (17:38)
[2022-08-19] MEDS: PIPERACILLIN-TAZOB 2.25GM 50 ML IV SCH (22:28)
[2022-08-20] VITALS (98 sets, daily range): BP systolic 121–183; BP diastolic 45–86
[2022-08-20] MEDS: IPRATROPIUM BROM 0.5 MG/2.5ML INH SOL NEB SCH ×2 (00:29→18:33)
[2022-08-20] MEDS: ALBUTEROL SULF 2.5 MG/0.5ML(0.5%) NEB SOLN NEB SCH ×2 (00:29→18:32)
[2022-08-20] MEDS: METOCLOPRAMIDE HCL 5MG/ml INJ 2ml VIAL IV SCH ×3 (05:52→22:50)
[2022-08-20] MEDS: SODIUM CHLOR 0.9% PF (SALINE LOCK) 10ML VIAL/SYR IV SCH ×5 (05:53→22:00)
[2022-08-20] MEDS: SUCRALFATE 1 GM/10 ML ORAL SUSP GT SCH ×4 (05:53→22:50)
[2022-08-20] MEDS: DOPamine 1600MCG/ML D5W 250 ML IV SCH (05:53)
[2022-08-20 06:24] LABS: Basophils # (auto) 0 10 ^3/uL (0-0.2); Basophils % (auto) 0.3 % (0.0-2.0); Eosinophils # (auto) 0.1 10 ^3/uL (0-0.8); Eosinophils % (auto) 1.3 % (0.0-7.0); Hematocrit 24.4 % (41.0-53.0); Hemoglobin 7.8 g/dL (13.5-17.5); Lymphocytes # (auto) 0.4 10 ^3/uL (0.4-5.4); Lymphocytes % (auto) 7.1 % (10.0-50.0); Mean Corpuscular Hemoglobin 30.2 pg (28.0-32.0); Mean Corpuscular Volume 94.1 fL (80.0-100.0); Monocytes # (auto) 0.5 10 ^3/uL (0-1.3); Monocytes % (auto) 8.3 % (0.0-12.0); Nucleated Red Blood Cells % 0.4 %; Red Blood Cells 2.59 10^6/uL (4.5-5.90); Red Cell Distribution Width 16.5 % (11.8-14.3); White Blood Cell 6.1 10^3/uL (4.4-10.8)
[2022-08-20] MEDS: PIPERACILLIN-TAZOB 2.25GM 50 ML IV SCH ×3 (06:25→18:50)
[2022-08-20 06:44] LABS: Albumin 1.9 g/dL (3.4-5.0); BUN/Creatinine Ratio 23.1; Calcium 7.6 mg/dL (8.5-10.1); Potassium 3.4 mmol/L (3.5-5.1)
[2022-08-20 06:49] LABS: Bilirubin, Total 0.8 mg/dL (0.2-1.0); Total Protein 4.6 g/dL (6.4-8.2)
[2022-08-20] MEDS: SODIUM BICARB 50ML SYR 50 ML in SOD CHL 0.45% 1,000 ML IV SCH ×2 (08:42→22:51)
[2022-08-20] MEDS: AZITHROMYCIN 500MG/ 250ML 250 ML IV SCH (09:51)
[2022-08-20] MEDS: amLODIPine BESYLATE 5 MG TAB PO SCH (09:52)
[2022-08-20] MEDS: PANTOPRAZOLE 40 MG/10 ML VIAL INJ IV SCH (09:52)
[2022-08-20] MEDS: CLOPIDOGREL BISULFATE 75 MG TAB PO SCH (09:52)
[2022-08-20] MEDS: ALLOPURINOL 300 MG TAB PO SCH (09:52)
[2022-08-20] MEDS: GABAPENTIN 300 MG CAP PO SCH ×2 (09:52→22:51)
[2022-08-20] MEDS: FUROSEMIDE 20 MG/2 ML VIAL IV SCH ×2 (09:53→22:50)
[2022-08-20] MEDS: ACETAMINOPHEN 325 MG TAB PO PRN ×3 (10:07→23:16)
[2022-08-20] MEDS: ENOXAPARIN SOD 80 MG/0.8ML SYRINGE SC SCH (10:30)
[2022-08-20] MEDS: MIDAZOLAM DRIP 50 mg/50mL 50 ML IV SCH (10:45)
[2022-08-20] MEDS: NOREPINEPHRINE 8 MG/250ML KIT 250 ML IV SCH (11:45)
[2022-08-20] MEDS ORDERED: POTASSIUM CHL 20MEQ/100ML 200 ML IV ONE (12:12)
[2022-08-20] MEDS: POTASSIUM CHL 20MEQ/100ML 100 ML IV SCH ×2 (12:54→13:52)
[2022-08-20] MEDS: fentaNYL Drip 2500mCg/250mlNS 250 ML IV SCH (12:55)
[2022-08-20] MEDS: ATORVASTATIN 20 MG TAB PO SCH (17:31)
[2022-08-21] VITALS (94 sets, daily range): BP systolic 95–168; BP diastolic 43–125
[2022-08-21] MEDS: IPRATROPIUM BROM 0.5 MG/2.5ML INH SOL NEB SCH ×4 (00:13→17:57)
[2022-08-21] MEDS: ALBUTEROL SULF 2.5 MG/0.5ML(0.5%) NEB SOLN NEB SCH ×4 (00:13→17:57)
[2022-08-21] MEDS: fentaNYL Drip 2500mCg/250mlNS 250 ML IV SCH ×3 (00:38→22:32)
[2022-08-21] MEDS: PIPERACILLIN-TAZOB 2.25GM 50 ML IV SCH ×3 (03:00→18:33)
[2022-08-21] MEDS: METOCLOPRAMIDE HCL 5MG/ml INJ 2ml VIAL IV SCH ×3 (05:20→23:03)
[2022-08-21] MEDS: SODIUM CHLOR 0.9% PF (SALINE LOCK) 10ML VIAL/SYR IV SCH ×5 (05:20→22:00)
[2022-08-21] MEDS: SUCRALFATE 1 GM/10 ML ORAL SUSP GT SCH ×4 (05:21→23:04)
[2022-08-21 07:29] LABS: Calcium 7.6 mg/dL (8.5-10.1); Potassium 4.1 mmol/L (3.5-5.1)
[2022-08-21 07:31] LABS: BUN/Creatinine Ratio 24.5
[2022-08-21 07:41] LABS: Bilirubin, Total 0.8 mg/dL (0.2-1.0); Total Protein 5.1 g/dL (6.4-8.2)
[2022-08-21 07:47] LABS: Basophils # (auto) 0 10 ^3/uL (0-0.2); Basophils % (auto) 0.3 % (0.0-2.0); Eosinophils # (auto) 0 10 ^3/uL (0-0.8); Eosinophils % (auto) 0.2 % (0.0-7.0); Hematocrit 26.7 % (41.0-53.0); Hemoglobin 8.5 g/dL (13.5-17.5); Lymphocytes # (auto) 0.6 10 ^3/uL (0.4-5.4); Lymphocytes % (auto) 6.6 % (10.0-50.0); Mean Corpuscular Hemoglobin 30.7 pg (28.0-32.0); Mean Corpuscular Hgb Conc. 31.9 g/dL (32.0-36.0); Mean Corpuscular Volume 96.1 fL (80.0-100.0); Monocytes % (auto) 11.9 % (0.0-12.0); Neutrophils # (auto) 6.8 10 ^3/uL (1.6-8.6); Nucleated Red Blood Cells % 0.3 %; Red Blood Cells 2.78 10^6/uL (4.5-5.90); Red Cell Distribution Width 16.6 % (11.8-14.3); White Blood Cell 8.4 10^3/uL (4.4-10.8)
[2022-08-21] MEDS: PANTOPRAZOLE 40 MG/10 ML VIAL INJ IV SCH (09:57)
[2022-08-21] MEDS: AZITHROMYCIN 500MG/ 250ML 250 ML IV SCH (09:57)
[2022-08-21] MEDS: ENOXAPARIN SOD 80 MG/0.8ML SYRINGE SC SCH (09:58)
[2022-08-21] MEDS: FUROSEMIDE 20 MG/2 ML VIAL IV SCH ×2 (09:58→22:00)
[2022-08-21] MEDS: GABAPENTIN 300 MG CAP PO SCH ×2 (09:59→23:03)
[2022-08-21] MEDS: CLOPIDOGREL BISULFATE 75 MG TAB PO SCH (09:59)
[2022-08-21] MEDS: amLODIPine BESYLATE 5 MG TAB PO SCH (09:59)
[2022-08-21] MEDS: ALLOPURINOL 300 MG TAB PO SCH (10:27)
[2022-08-21] MEDS: DOPamine 1600MCG/ML D5W 250 ML IV SCH (10:27)
[2022-08-21] MEDS: MIDAZOLAM DRIP 50 mg/50mL 50 ML IV SCH (10:45)
[2022-08-21] MEDS: NOREPINEPHRINE 8 MG/250ML KIT 250 ML IV SCH (11:45)
[2022-08-21] MEDS: ATORVASTATIN 20 MG TAB PO SCH (17:53)
[2022-08-22] VITALS (105 sets, daily range): BP systolic 68–174; BP diastolic 37–111
[2022-08-22] MEDS: ALBUTEROL SULF 2.5 MG/0.5ML(0.5%) NEB SOLN NEB SCH ×4 (00:07→18:58)
[2022-08-22] MEDS: IPRATROPIUM BROM 0.5 MG/2.5ML INH SOL NEB SCH ×4 (00:07→18:58)
[2022-08-22] MEDS: PIPERACILLIN-TAZOB 2.25GM 50 ML IV SCH ×3 (03:00→18:22)
[2022-08-22] MEDS: FUROSEMIDE 20 MG/2 ML VIAL IV SCH ×2 (05:57→17:24)
[2022-08-22] MEDS: SODIUM CHLOR 0.9% PF (SALINE LOCK) 10ML VIAL/SYR IV SCH ×5 (05:57→21:28)
[2022-08-22] MEDS: METOCLOPRAMIDE HCL 5MG/ml INJ 2ml VIAL IV SCH ×3 (05:57→21:28)
[2022-08-22] MEDS: SUCRALFATE 1 GM/10 ML ORAL SUSP GT SCH ×4 (07:00→21:28)
[2022-08-22 07:03] LABS: Basophils # (auto) 0 10 ^3/uL (0-0.2); Eosinophils # (auto) 0 10 ^3/uL (0-0.8); Hemoglobin 7.7 g/dL (13.5-17.5)
[2022-08-22 07:05] LABS: Basophils % (auto) 0.2 % (0.0-2.0); Lymphocytes % (auto) 7.7 % (10.0-50.0); Mean Corpuscular Hemoglobin 29.4 pg (28.0-32.0); Mean Corpuscular Hgb Conc. 30.7 g/dL (32.0-36.0); Mean Corpuscular Volume 95.7 fL (80.0-100.0); Monocytes % (auto) 7.9 % (0.0-12.0); Neutrophils # (auto) 10.5 10 ^3/uL (1.6-8.6); Neutrophils % (auto) 84.2 % (37.0-80.0); Nucleated Red Blood Cells % 0.6 %; Red Blood Cells 2.61 10^6/uL (4.5-5.90); Red Cell Distribution Width 16.4 % (11.8-14.3); White Blood Cell 12.5 10^3/uL (4.4-10.8)
[2022-08-22 07:48] LABS: Albumin 1.8 g/dL (3.4-5.0); Anion Gap 12 (5-15); Blood Urea Nitrogen 71 mg/dL (7-18); Calcium 7.5 mg/dL (8.5-10.1); Carbon Dioxide 28 mmol/L (21-32); Chloride 101 mmol/L (98-107); Glucose 172 mg/dL (74-106); Potassium 3.9 mmol/L (3.5-5.1); Sodium 141 mmol/L (136-145)
[2022-08-22 07:50] LABS: Alanine Aminotransferase 238 U/L (16-61); Aspartate Aminotransferase 248 U/L (15-37); BUN/Creatinine Ratio 24.2; GFR African American 27 mL/min; GFR Non-African American 22 mL/min
[2022-08-22 07:52] LABS: Alkaline Phosphatase 140 U/L (45-117); Bilirubin, Total 0.6 mg/dL (0.2-1.0); Total Protein 4.7 g/dL (6.4-8.2)
[2022-08-22] MEDS: PANTOPRAZOLE 40 MG/10 ML VIAL INJ IV SCH (10:26)
[2022-08-22] MEDS: CLOPIDOGREL BISULFATE 75 MG TAB PO SCH (10:27)
[2022-08-22] MEDS: GABAPENTIN 300 MG CAP PO SCH ×2 (10:27→21:28)
[2022-08-22] MEDS: amLODIPine BESYLATE 5 MG TAB PO SCH (10:27)
[2022-08-22] MEDS: AZITHROMYCIN 500MG/ 250ML 250 ML IV SCH (10:28)
[2022-08-22] MEDS: ALLOPURINOL 300 MG TAB PO SCH (10:28)
[2022-08-22] MEDS: MIDAZOLAM DRIP 50 mg/50mL 50 ML IV SCH (10:45)
[2022-08-22] MEDS: NOREPINEPHRINE 8 MG/250ML KIT 250 ML IV SCH (11:45)
[2022-08-22] MEDS: ENOXAPARIN SOD 80 MG/0.8ML SYRINGE SC SCH (12:20)
[2022-08-22] MEDS: fentaNYL Drip 2500mCg/250mlNS 250 ML IV SCH (13:32)
[2022-08-22] MEDS: ATORVASTATIN 20 MG TAB PO SCH (17:24)
[2022-08-22] MEDS ORDERED: FUROSEMIDE 20 MG/2 ML VIAL IV ONE (18:15)
[2022-08-23] VITALS (92 sets, daily range): BP systolic 115–172; BP diastolic 39–105
[2022-08-23] MEDS: IPRATROPIUM BROM 0.5 MG/2.5ML INH SOL NEB SCH ×4 (00:13→18:14)
[2022-08-23] MEDS: ALBUTEROL SULF 2.5 MG/0.5ML(0.5%) NEB SOLN NEB SCH ×4 (00:13→18:14)
[2022-08-23] MEDS: PIPERACILLIN-TAZOB 2.25GM 50 ML IV SCH ×3 (03:15→18:36)
[2022-08-23 04:15] LABS: Basophils # (auto) 0 10 ^3/uL (0-0.2); Basophils % (auto) 0.3 % (0.0-2.0)
[2022-08-23 04:16] LABS: Eosinophils # (auto) 0.1 10 ^3/uL (0-0.8); Eosinophils % (auto) 0.8 % (0.0-7.0); Hematocrit 23.9 % (41.0-53.0); Hemoglobin 7.7 g/dL (13.5-17.5); Lymphocytes # (auto) 0.9 10 ^3/uL (0.4-5.4); Mean Corpuscular Hgb Conc. 32.4 g/dL (32.0-36.0); Mean Corpuscular Volume 95.6 fL (80.0-100.0); Monocytes # (auto) 0.9 10 ^3/uL (0-1.3); Monocytes % (auto) 9.7 % (0.0-12.0); Neutrophils # (auto) 7.9 10 ^3/uL (1.6-8.6); Neutrophils % (auto) 80.2 % (37.0-80.0); Nucleated Red Blood Cells % 0.8 %; Red Cell Distribution Width 16.5 % (11.8-14.3); White Blood Cell 9.8 10^3/uL (4.4-10.8)
[2022-08-23 04:29] LABS: Potassium 3.4 mmol/L (3.5-5.1)
[2022-08-23 04:38] LABS: Albumin 1.9 g/dL (3.4-5.0); BUN/Creatinine Ratio 25.4; Calcium 7.9 mg/dL (8.5-10.1)
[2022-08-23 04:41] LABS: Bilirubin, Total 0.6 mg/dL (0.2-1.0); Phosphorus 2.5 mg/dL (2.5-4.90); Total Protein 4.9 g/dL (6.4-8.2)
[2022-08-23] MEDS: METOCLOPRAMIDE HCL 5MG/ml INJ 2ml VIAL IV SCH ×3 (05:50→21:58)
[2022-08-23] MEDS: FUROSEMIDE 20 MG/2 ML VIAL IV SCH (05:51)
[2022-08-23] MEDS: SODIUM CHLOR 0.9% PF (SALINE LOCK) 10ML VIAL/SYR IV SCH ×5 (05:51→21:50)
[2022-08-23] MEDS: SUCRALFATE 1 GM/10 ML ORAL SUSP GT SCH ×4 (05:52→22:09)
[2022-08-23] MEDS: fentaNYL Drip 2500mCg/250mlNS 250 ML IV SCH (06:33)
[2022-08-23] MEDS: AZITHROMYCIN 500MG/ 250ML 250 ML IV SCH (10:19)
[2022-08-23] MEDS: ENOXAPARIN SOD 80 MG/0.8ML SYRINGE SC SCH (10:20)
[2022-08-23] MEDS: PANTOPRAZOLE 40 MG/10 ML VIAL INJ IV SCH (10:20)
[2022-08-23] MEDS: GABAPENTIN 300 MG CAP PO SCH ×2 (10:20→21:57)
[2022-08-23] MEDS: amLODIPine BESYLATE 5 MG TAB PO SCH (10:21)
[2022-08-23] MEDS: ALLOPURINOL 300 MG TAB PO SCH (10:21)
[2022-08-23] MEDS: CLOPIDOGREL BISULFATE 75 MG TAB PO SCH (10:21)
[2022-08-23] MEDS: MIDAZOLAM DRIP 50 mg/50mL 50 ML IV SCH (10:45)
[2022-08-23] MEDS: NOREPINEPHRINE 8 MG/250ML KIT 250 ML IV SCH (11:45)
[2022-08-23] MEDS ORDERED: FUROSEMIDE 20 MG/2 ML VIAL IV SCH (12:00)
[2022-08-23] MEDS: DOPamine 1600MCG/ML D5W 250 ML IV SCH (13:27)
[2022-08-23] MEDS: FUROSEMIDE 40 MG/4 ML VIAL IV SCH (13:27)
[2022-08-23] MEDS: ALBUMIN 25% 100 ML IV SCH ×2 (13:32→20:00)
[2022-08-23] MEDS: OCTREOTIDE ACETATE 100 MCG/ML VL SUBCUT SCH ×2 (13:38→21:58)
[2022-08-23] MEDS: ATORVASTATIN 20 MG TAB PO SCH (17:53)
[2022-08-24] VITALS (91 sets, daily range): BP systolic 110–163; BP diastolic 24–77
[2022-08-24] MEDS: IPRATROPIUM BROM 0.5 MG/2.5ML INH SOL NEB SCH ×5 (00:19→23:45)
[2022-08-24] MEDS: ALBUTEROL SULF 2.5 MG/0.5ML(0.5%) NEB SOLN NEB SCH ×5 (00:19→23:45)
[2022-08-24] MEDS: ACETAMINOPHEN 325 MG TAB PO PRN (01:13)
[2022-08-24] MEDS: PIPERACILLIN-TAZOB 2.25GM 50 ML IV SCH ×3 (02:46→18:52)
[2022-08-24] MEDS: ALBUMIN 25% 100 ML IV SCH (03:36)
[2022-08-24 03:59] LABS: Hemoglobin 8.3 g/dL (13.5-17.5)
[2022-08-24 04:02] LABS: Hematocrit 28.1 % (41.0-53.0); Mean Corpuscular Hemoglobin 30.7 pg (28.0-32.0); Mean Corpuscular Hgb Conc. 29.5 g/dL (32.0-36.0); Mean Corpuscular Volume 104.1 fL (80.0-100.0); Red Cell Distribution Width 17.1 % (11.8-14.3); White Blood Cell 9.4 10^3/uL (4.4-10.8)
[2022-08-24 04:30] LABS: BUN/Creatinine Ratio 26.4; Calcium 8.2 mg/dL (8.5-10.1); Phosphorus 2.7 mg/dL (2.5-4.90); Potassium 4.1 mmol/L (3.5-5.1); Uric Acid 5.2 mg/dL (3.5-7.2)
[2022-08-24 05:18] LABS: Band Neutrophils % (manual) 0; Basophils % (manual) 0 (0.0-2.0); Blast Cells 0; Eosinophils % (manual) 0 (0-7); Metamyelocytes % 0; Promyelocytes % 0; Reactive Lymphocytes 0
[2022-08-24] MEDS: OCTREOTIDE ACETATE 100 MCG/ML VL SUBCUT SCH ×3 (05:46→21:30)
[2022-08-24] MEDS: METOCLOPRAMIDE HCL 5MG/ml INJ 2ml VIAL IV SCH ×3 (05:46→21:30)
[2022-08-24] MEDS: SODIUM CHLOR 0.9% PF (SALINE LOCK) 10ML VIAL/SYR IV SCH ×5 (05:46→21:29)
[2022-08-24] MEDS: SUCRALFATE 1 GM/10 ML ORAL SUSP GT SCH ×4 (06:45→22:14)
[2022-08-24 07:16] LABS: Lymphocytes % (manual) 9 (10.0-50.0); Monocytes % (manual) 7 (0-12); Myelocytes % 1
[2022-08-24] MEDS: FUROSEMIDE 40 MG/4 ML VIAL IV SCH (10:15)
[2022-08-24] MEDS: PANTOPRAZOLE 40 MG/10 ML VIAL INJ IV SCH (10:16)
[2022-08-24] MEDS: amLODIPine BESYLATE 5 MG TAB PO SCH (10:16)
[2022-08-24] MEDS: CLOPIDOGREL BISULFATE 75 MG TAB PO SCH (10:16)
[2022-08-24] MEDS: GABAPENTIN 300 MG CAP PO SCH ×2 (10:17→21:28)
[2022-08-24] MEDS: ENOXAPARIN SOD 80 MG/0.8ML SYRINGE SC SCH (10:17)
[2022-08-24] MEDS: AZITHROMYCIN 500MG/ 250ML 250 ML IV SCH (10:17)
[2022-08-24] MEDS: fentaNYL Drip 2500mCg/250mlNS 250 ML IV SCH (10:45)
[2022-08-24] MEDS: MIDAZOLAM DRIP 50 mg/50mL 50 ML IV SCH (10:45)
[2022-08-24] MEDS: NOREPINEPHRINE 8 MG/250ML KIT 250 ML IV SCH (11:45)
[2022-08-24] MEDS: DOPamine 1600MCG/ML D5W 250 ML IV SCH (12:00)
[2022-08-24] MEDS: ATORVASTATIN 20 MG TAB PO SCH (17:39)
[2022-08-25] VITALS (103 sets, daily range): BP systolic 115–169; BP diastolic 49–81
[2022-08-25] MEDS: hydrALAZINE HCL 20 MG/ML VL IV PRN ×3 (00:42→20:09)
[2022-08-25] MEDS: PIPERACILLIN-TAZOB 2.25GM 50 ML IV SCH ×3 (02:36→18:19)
[2022-08-25 03:59] LABS: Basophils # (auto) 0 10 ^3/uL (0-0.2); Eosinophils # (auto) 0 10 ^3/uL (0-0.8)
[2022-08-25 04:02] LABS: Basophils % (auto) 0.2 % (0.0-2.0); Eosinophils % (auto) 0.3 % (0.0-7.0); Hematocrit 25.4 % (41.0-53.0); Hemoglobin 7.9 g/dL (13.5-17.5); Lymphocytes % (auto) 7.6 % (10.0-50.0); Mean Corpuscular Hemoglobin 29.8 pg (28.0-32.0); Mean Corpuscular Hgb Conc. 31.3 g/dL (32.0-36.0); Mean Corpuscular Volume 95.1 fL (80.0-100.0); Monocytes # (auto) 1.3 10 ^3/uL (0-1.3); Monocytes % (auto) 9.2 % (0.0-12.0); Neutrophils # (auto) 11.3 10 ^3/uL (1.6-8.6); Neutrophils % (auto) 82.7 % (37.0-80.0); Nucleated Red Blood Cells % 1.1 %; Red Blood Cells 2.67 10^6/uL (4.5-5.90); Red Cell Distribution Width 16.7 % (11.8-14.3); White Blood Cell 13.7 10^3/uL (4.4-10.8)
[2022-08-25 04:57] LABS: BUN/Creatinine Ratio 28.5; Calcium 8.2 mg/dL (8.5-10.1); Potassium 3.4 mmol/L (3.5-5.1)
[2022-08-25] MEDS: SODIUM CHLOR 0.9% PF (SALINE LOCK) 10ML VIAL/SYR IV SCH ×5 (05:39→21:12)
[2022-08-25] MEDS: OCTREOTIDE ACETATE 100 MCG/ML VL SUBCUT SCH ×3 (05:39→21:09)
[2022-08-25] MEDS: METOCLOPRAMIDE HCL 5MG/ml INJ 2ml VIAL IV SCH ×3 (05:39→21:09)
[2022-08-25] MEDS: SUCRALFATE 1 GM/10 ML ORAL SUSP GT SCH ×4 (06:30→21:09)
[2022-08-25] MEDS: ALBUTEROL SULF 2.5 MG/0.5ML(0.5%) NEB SOLN NEB SCH ×2 (07:26→18:24)
[2022-08-25] MEDS: IPRATROPIUM BROM 0.5 MG/2.5ML INH SOL NEB SCH ×2 (07:26→18:24)
[2022-08-25] MEDS: fentaNYL Drip 2500mCg/250mlNS 250 ML IV SCH (10:45)
[2022-08-25] MEDS: MIDAZOLAM DRIP 50 mg/50mL 50 ML IV SCH (10:45)
[2022-08-25] MEDS: ENOXAPARIN SOD 80 MG/0.8ML SYRINGE SC SCH (11:08)
[2022-08-25] MEDS: PANTOPRAZOLE 40 MG/10 ML VIAL INJ IV SCH (11:09)
[2022-08-25] MEDS: FUROSEMIDE 40 MG/4 ML VIAL IV SCH (11:09)
[2022-08-25] MEDS: GABAPENTIN 300 MG CAP PO SCH ×2 (11:10→21:10)
[2022-08-25] MEDS: CLOPIDOGREL BISULFATE 75 MG TAB PO SCH (11:10)
[2022-08-25] MEDS: amLODIPine BESYLATE 5 MG TAB PO SCH (11:10)
[2022-08-25] MEDS: AZITHROMYCIN 500MG/ 250ML 250 ML IV SCH (11:12)
[2022-08-25] MEDS: NOREPINEPHRINE 8 MG/250ML KIT 250 ML IV SCH (11:45)
[2022-08-25] MEDS: DOPamine 1600MCG/ML D5W 250 ML IV SCH (12:00)
[2022-08-25] MEDS ORDERED: DOPamine 1600MCG/ML D5W 250 ML IV SCH (14:30)
[2022-08-25] MEDS: ATORVASTATIN 20 MG TAB PO SCH (18:12)
[2022-08-26] VITALS (104 sets, daily range): BP systolic 108–159; BP diastolic 48–88
[2022-08-26] MEDS: ALBUTEROL SULF 2.5 MG/0.5ML(0.5%) NEB SOLN NEB SCH ×4 (00:08→17:58)
[2022-08-26] MEDS: IPRATROPIUM BROM 0.5 MG/2.5ML INH SOL NEB SCH ×4 (00:08→17:58)
[2022-08-26] MEDS: PIPERACILLIN-TAZOB 2.25GM 50 ML IV SCH ×3 (02:56→23:53)
[2022-08-26 05:02] LABS: Eosinophils # (auto) 0 10 ^3/uL (0-0.8); Monocytes # (auto) 1.4 10 ^3/uL (0-1.3); Monocytes % (auto) 8.6 % (0.0-12.0)
[2022-08-26 05:04] LABS: Basophils # (auto) 0.1 10 ^3/uL (0-0.2); Basophils % (auto) 0.4 % (0.0-2.0); Eosinophils % (auto) 0.2 % (0.0-7.0); Hemoglobin 7.8 g/dL (13.5-17.5); Lymphocytes # (auto) 0.8 10 ^3/uL (0.4-5.4); Lymphocytes % (auto) 4.8 % (10.0-50.0); Mean Corpuscular Hemoglobin 29.9 pg (28.0-32.0); Mean Corpuscular Hgb Conc. 31.3 g/dL (32.0-36.0); Mean Corpuscular Volume 95.6 fL (80.0-100.0); Neutrophils # (auto) 14.1 10 ^3/uL (1.6-8.6); Nucleated Red Blood Cells % 0.2 %; Red Blood Cells 2.61 10^6/uL (4.5-5.90); Red Cell Distribution Width 17.1 % (11.8-14.3); White Blood Cell 16.4 10^3/uL (4.4-10.8)
[2022-08-26 05:19] LABS: BUN/Creatinine Ratio 29.1; Calcium 8.2 mg/dL (8.5-10.1); Potassium 3.5 mmol/L (3.5-5.1)
[2022-08-26] MEDS: METOCLOPRAMIDE HCL 5MG/ml INJ 2ml VIAL IV SCH ×3 (06:32→22:13)
[2022-08-26] MEDS: OCTREOTIDE ACETATE 100 MCG/ML VL SUBCUT SCH ×3 (06:32→22:13)
[2022-08-26] MEDS: SODIUM CHLOR 0.9% PF (SALINE LOCK) 10ML VIAL/SYR IV SCH ×5 (06:32→22:14)
[2022-08-26] MEDS: SUCRALFATE 1 GM/10 ML ORAL SUSP GT SCH ×4 (06:33→22:12)
[2022-08-26] MEDS: fentaNYL Drip 2500mCg/250mlNS 250 ML IV SCH ×3 (08:45→18:02)
[2022-08-26] MEDS: MIDAZOLAM DRIP 50 mg/50mL 50 ML IV SCH (10:45)
[2022-08-26] MEDS: AZITHROMYCIN 500MG/ 250ML 250 ML IV SCH (11:12)
[2022-08-26] MEDS: FUROSEMIDE 40 MG/4 ML VIAL IV SCH (11:13)
[2022-08-26] MEDS: ENOXAPARIN SOD 80 MG/0.8ML SYRINGE SC SCH (11:13)
[2022-08-26] MEDS: PANTOPRAZOLE 40 MG/10 ML VIAL INJ IV SCH (11:13)
[2022-08-26] MEDS: CLOPIDOGREL BISULFATE 75 MG TAB PO SCH (11:15)
[2022-08-26] MEDS: GABAPENTIN 300 MG CAP PO SCH ×2 (11:15→22:13)
[2022-08-26] MEDS: amLODIPine BESYLATE 5 MG TAB PO SCH (11:15)
[2022-08-26] MEDS: NOREPINEPHRINE 8 MG/250ML KIT 250 ML IV SCH (11:45)
[2022-08-26] MEDS: DOPamine 1600MCG/ML D5W 250 ML IV SCH ×2 (12:30→18:03)
[2022-08-26] MEDS: ATORVASTATIN 20 MG TAB PO SCH (17:59)
[2022-08-27] VITALS (104 sets, daily range): BP systolic 129–169; BP diastolic 56–91
[2022-08-27] MEDS: IPRATROPIUM BROM 0.5 MG/2.5ML INH SOL NEB SCH ×4 (00:04→18:31)
[2022-08-27] MEDS: ALBUTEROL SULF 2.5 MG/0.5ML(0.5%) NEB SOLN NEB SCH ×4 (00:04→18:31)
[2022-08-27 04:09] LABS: Eosinophils # (auto) 0.2 10 ^3/uL (0-0.8); Eosinophils % (auto) 1.2 % (0.0-7.0); Mean Corpuscular Hemoglobin 29.1 pg (28.0-32.0); Mean Corpuscular Volume 95.5 fL (80.0-100.0); Monocytes # (auto) 1.3 10 ^3/uL (0-1.3)
[2022-08-27 04:11] LABS: Basophils # (auto) 0.1 10 ^3/uL (0-0.2); Basophils % (auto) 0.4 % (0.0-2.0); Hematocrit 25.1 % (41.0-53.0); Hemoglobin 7.6 g/dL (13.5-17.5); Lymphocytes % (auto) 7.6 % (10.0-50.0); Mean Corpuscular Hgb Conc. 30.4 g/dL (32.0-36.0); Monocytes % (auto) 9.4 % (0.0-12.0); Neutrophils # (auto) 11.3 10 ^3/uL (1.6-8.6); Neutrophils % (auto) 81.4 % (37.0-80.0); Nucleated Red Blood Cells % 0.5 %; Red Blood Cells 2.63 10^6/uL (4.5-5.90); Red Cell Distribution Width 16.7 % (11.8-14.3); White Blood Cell 13.8 10^3/uL (4.4-10.8)
[2022-08-27 04:25] LABS: BUN/Creatinine Ratio 26.5; Calcium 8.6 mg/dL (8.5-10.1); Potassium 3.1 mmol/L (3.5-5.1)
[2022-08-27] MEDS: METOCLOPRAMIDE HCL 5MG/ml INJ 2ml VIAL IV SCH ×3 (06:37→22:22)
[2022-08-27] MEDS: SUCRALFATE 1 GM/10 ML ORAL SUSP GT SCH ×4 (06:38→22:19)
[2022-08-27] MEDS: SODIUM CHLOR 0.9% PF (SALINE LOCK) 10ML VIAL/SYR IV SCH ×5 (06:38→22:23)
[2022-08-27] MEDS: OCTREOTIDE ACETATE 100 MCG/ML VL SUBCUT SCH ×3 (06:38→22:22)
[2022-08-27] MEDS: MIDAZOLAM DRIP 50 mg/50mL 50 ML IV SCH (07:41)
[2022-08-27] MEDS: NOREPINEPHRINE 8 MG/250ML KIT 250 ML IV SCH (07:41)
[2022-08-27] MEDS: GABAPENTIN 300 MG CAP PO SCH ×2 (09:03→22:22)
[2022-08-27] MEDS: PANTOPRAZOLE 40 MG/10 ML VIAL INJ IV SCH (09:03)
[2022-08-27] MEDS: CLOPIDOGREL BISULFATE 75 MG TAB PO SCH (09:03)
[2022-08-27] MEDS: amLODIPine BESYLATE 5 MG TAB PO SCH (09:04)
[2022-08-27] MEDS: PIPERACILLIN-TAZOB 2.25GM 50 ML IV SCH ×2 (09:06→17:29)
[2022-08-27] MEDS: AZITHROMYCIN 500MG/ 250ML 250 ML IV SCH (09:06)
[2022-08-27] MEDS: DOPamine 1600MCG/ML D5W 250 ML IV SCH (09:10)
[2022-08-27] MEDS: POTASSIUM CHL 20MEQ/100ML 100 ML IV SCH ×2 (11:51→13:05)
[2022-08-27] MEDS: fentaNYL Drip 2500mCg/250mlNS 250 ML IV SCH (16:12)
[2022-08-27] MEDS: ATORVASTATIN 20 MG TAB PO SCH (17:28)
[2022-08-28] VITALS (104 sets, daily range): BP systolic 121–161; BP diastolic 58–81
[2022-08-28] MEDS: ALBUTEROL SULF 2.5 MG/0.5ML(0.5%) NEB SOLN NEB SCH ×4 (00:10→17:58)
[2022-08-28] MEDS: IPRATROPIUM BROM 0.5 MG/2.5ML INH SOL NEB SCH ×4 (00:10→17:58)
[2022-08-28] MEDS: PIPERACILLIN-TAZOB 2.25GM 50 ML IV SCH ×3 (02:14→17:01)
[2022-08-28] MEDS: SODIUM CHLOR 0.9% PF (SALINE LOCK) 10ML VIAL/SYR IV SCH ×5 (06:04→22:11)
[2022-08-28] MEDS: METOCLOPRAMIDE HCL 5MG/ml INJ 2ml VIAL IV SCH ×3 (06:04→22:11)
[2022-08-28] MEDS: OCTREOTIDE ACETATE 100 MCG/ML VL SUBCUT SCH ×3 (06:06→22:11)
[2022-08-28] MEDS: SUCRALFATE 1 GM/10 ML ORAL SUSP GT SCH ×4 (06:52→22:10)
[2022-08-28] MEDS: AZITHROMYCIN 500MG/ 250ML 250 ML IV SCH (09:46)
[2022-08-28] MEDS: PANTOPRAZOLE 40 MG/10 ML VIAL INJ IV SCH (09:46)
[2022-08-28] MEDS: GABAPENTIN 300 MG CAP PO SCH ×2 (09:46→22:11)
[2022-08-28] MEDS: CLOPIDOGREL BISULFATE 75 MG TAB PO SCH (09:46)
[2022-08-28] MEDS: amLODIPine BESYLATE 5 MG TAB PO SCH (09:47)
[2022-08-28] MEDS: POTASSIUM CHL 20MEQ/100ML 100 ML IV SCH ×2 (13:39→15:27)
[2022-08-28] MEDS: DOPamine 1600MCG/ML D5W 250 ML IV SCH (13:40)
[2022-08-28] MEDS: fentaNYL Drip 2500mCg/250mlNS 250 ML IV SCH (13:43)
[2022-08-28] MEDS: ATORVASTATIN 20 MG TAB PO SCH (17:09)
[2022-08-29] VITALS (99 sets, daily range): BP systolic 105–162; BP diastolic 50–85
[2022-08-29] MEDS: ALBUTEROL SULF 2.5 MG/0.5ML(0.5%) NEB SOLN NEB SCH ×4 (00:36→18:49)
[2022-08-29] MEDS: IPRATROPIUM BROM 0.5 MG/2.5ML INH SOL NEB SCH ×4 (00:36→18:49)
[2022-08-29] MEDS: PIPERACILLIN-TAZOB 2.25GM 50 ML IV SCH ×3 (02:03→18:11)
[2022-08-29] MEDS: METOCLOPRAMIDE HCL 5MG/ml INJ 2ml VIAL IV SCH ×3 (06:22→22:01)
[2022-08-29] MEDS: SUCRALFATE 1 GM/10 ML ORAL SUSP GT SCH ×4 (06:22→22:01)
[2022-08-29] MEDS: SODIUM CHLOR 0.9% PF (SALINE LOCK) 10ML VIAL/SYR IV SCH ×5 (06:23→22:02)
[2022-08-29] MEDS: OCTREOTIDE ACETATE 100 MCG/ML VL SUBCUT SCH ×3 (06:23→22:04)
[2022-08-29] MEDS: MIDAZOLAM DRIP 50 mg/50mL 50 ML IV SCH (07:41)
[2022-08-29 08:14] LABS: Albumin 2.3 g/dL (3.4-5.0); Calcium 8.3 mg/dL (8.5-10.1); Potassium 4.7 mmol/L (3.5-5.1)
[2022-08-29 08:18] LABS: BUN/Creatinine Ratio 28.8; Bilirubin, Total 0.8 mg/dL (0.2-1.0)
[2022-08-29 08:24] LABS: Basophils # (auto) 0.1 10 ^3/uL (0-0.2); Basophils % (auto) 0.4 % (0.0-2.0); Eosinophils # (auto) 0 10 ^3/uL (0-0.8); Eosinophils % (auto) 0.2 % (0.0-7.0); Hematocrit 24.9 % (41.0-53.0); Hemoglobin 7.5 g/dL (13.5-17.5); Lymphocytes # (auto) 1.1 10 ^3/uL (0.4-5.4); Lymphocytes % (auto) 4.9 % (10.0-50.0); Mean Corpuscular Hemoglobin 29.2 pg (28.0-32.0); Mean Corpuscular Hgb Conc. 30.3 g/dL (32.0-36.0); Mean Corpuscular Volume 96.6 fL (80.0-100.0); Monocytes # (auto) 2.1 10 ^3/uL (0-1.3); Monocytes % (auto) 9.6 % (0.0-12.0); Neutrophils # (auto) 18.7 10 ^3/uL (1.6-8.6); Neutrophils % (auto) 84.9 % (37.0-80.0); Nucleated Red Blood Cells % 0.3 %; Red Blood Cells 2.58 10^6/uL (4.5-5.90); Red Cell Distribution Width 17.2 % (11.8-14.3)
[2022-08-29] MEDS: GABAPENTIN 300 MG CAP PO SCH ×2 (09:41→22:01)
[2022-08-29] MEDS: amLODIPine BESYLATE 5 MG TAB PO SCH (09:41)
[2022-08-29] MEDS: CLOPIDOGREL BISULFATE 75 MG TAB PO SCH (09:41)
[2022-08-29] MEDS: PANTOPRAZOLE 40 MG/10 ML VIAL INJ IV SCH (09:41)
[2022-08-29] MEDS ORDERED: FUROSEMIDE 40 MG/4 ML VIAL IV ONE (11:15)
[2022-08-29] MEDS: DOPamine 1600MCG/ML D5W 250 ML IV SCH (12:30)
[2022-08-29] MEDS: fentaNYL Drip 2500mCg/250mlNS 250 ML IV SCH ×2 (14:15→17:24)
[2022-08-29] MEDS: ATORVASTATIN 20 MG TAB PO SCH (18:11)
[2022-08-30] VITALS (106 sets, daily range): BP systolic 106–140; BP diastolic 43–66
[2022-08-30] MEDS: IPRATROPIUM BROM 0.5 MG/2.5ML INH SOL NEB SCH ×5 (00:11→23:57)
[2022-08-30] MEDS: ALBUTEROL SULF 2.5 MG/0.5ML(0.5%) NEB SOLN NEB SCH ×5 (00:11→23:57)
[2022-08-30] MEDS: PIPERACILLIN-TAZOB 2.25GM 50 ML IV SCH ×3 (01:56→17:27)
[2022-08-30 04:26] LABS: Basophils # (auto) 0.1 10 ^3/uL (0-0.2); Eosinophils # (auto) 0.2 10 ^3/uL (0-0.8); Hematocrit 22.2 % (41.0-53.0)
[2022-08-30 04:29] LABS: Basophils % (auto) 0.5 % (0.0-2.0); Eosinophils % (auto) 1.3 % (0.0-7.0); Lymphocytes # (auto) 0.9 10 ^3/uL (0.4-5.4); Lymphocytes % (auto) 6.1 % (10.0-50.0); Mean Corpuscular Hemoglobin 30.3 pg (28.0-32.0); Mean Corpuscular Hgb Conc. 30.8 g/dL (32.0-36.0); Mean Corpuscular Volume 98.4 fL (80.0-100.0); Monocytes # (auto) 1.3 10 ^3/uL (0-1.3); Monocytes % (auto) 8.9 % (0.0-12.0); Neutrophils # (auto) 12.6 10 ^3/uL (1.6-8.6); Neutrophils % (auto) 83.2 % (37.0-80.0); Nucleated Red Blood Cells % 0.2 %; Red Blood Cells 2.25 10^6/uL (4.5-5.90); Red Cell Distribution Width 17.1 % (11.8-14.3); White Blood Cell 15.2 10^3/uL (4.4-10.8)
[2022-08-30 04:33] LABS: Hemoglobin 6.8 g/dL (13.5-17.5)
[2022-08-30 04:39] LABS: BUN/Creatinine Ratio 28.3; Calcium 8.3 mg/dL (8.5-10.1); Potassium 4.1 mmol/L (3.5-5.1)
[2022-08-30] MEDS: MIDAZOLAM DRIP 50 mg/50mL 50 ML IV SCH ×2 (05:08→17:39)
[2022-08-30] MEDS: METOCLOPRAMIDE HCL 5MG/ml INJ 2ml VIAL IV SCH ×3 (06:02→22:26)
[2022-08-30] MEDS: SUCRALFATE 1 GM/10 ML ORAL SUSP GT SCH ×4 (06:02→21:56)
[2022-08-30] MEDS: SODIUM CHLOR 0.9% PF (SALINE LOCK) 10ML VIAL/SYR IV SCH ×5 (06:03→21:58)
[2022-08-30] MEDS: OCTREOTIDE ACETATE 100 MCG/ML VL SUBCUT SCH ×3 (06:03→21:57)
[2022-08-30] MEDS: fentaNYL Drip 2500mCg/250mlNS 250 ML IV SCH ×2 (06:12→17:45)
[2022-08-30] MEDS: GABAPENTIN 300 MG CAP PO SCH ×2 (09:33→21:56)
[2022-08-30] MEDS: PANTOPRAZOLE 40 MG/10 ML VIAL INJ IV SCH (09:33)
[2022-08-30] MEDS: amLODIPine BESYLATE 5 MG TAB PO SCH (09:34)
[2022-08-30] MEDS: CLOPIDOGREL BISULFATE 75 MG TAB PO SCH (09:34)
[2022-08-30] MEDS: ATORVASTATIN 20 MG TAB PO SCH (17:28)
[2022-08-30] MEDS: DOPamine 1600MCG/ML D5W 250 ML IV SCH (17:46)
[2022-08-31] VITALS (102 sets, daily range): BP systolic 116–140; BP diastolic 48–67
[2022-08-31] MEDS: PIPERACILLIN-TAZOB 2.25GM 50 ML IV SCH ×3 (01:53→17:21)
[2022-08-31] MEDS: fentaNYL Drip 2500mCg/250mlNS 250 ML IV SCH (04:50)
[2022-08-31] MEDS: OCTREOTIDE ACETATE 100 MCG/ML VL SUBCUT SCH ×3 (05:11→21:52)
[2022-08-31] MEDS: METOCLOPRAMIDE HCL 5MG/ml INJ 2ml VIAL IV SCH ×3 (05:11→21:52)
[2022-08-31] MEDS: MIDAZOLAM DRIP 50 mg/50mL 50 ML IV SCH ×2 (05:59→22:07)
[2022-08-31] MEDS: SODIUM CHLOR 0.9% PF (SALINE LOCK) 10ML VIAL/SYR IV SCH ×5 (06:12→21:53)
[2022-08-31] MEDS: ALBUTEROL SULF 2.5 MG/0.5ML(0.5%) NEB SOLN NEB SCH ×3 (06:48→18:47)
[2022-08-31] MEDS: IPRATROPIUM BROM 0.5 MG/2.5ML INH SOL NEB SCH ×3 (06:49→18:48)
[2022-08-31] MEDS: SUCRALFATE 1 GM/10 ML ORAL SUSP GT SCH ×4 (07:07→21:51)
[2022-08-31 09:19] LABS: Basophils # (auto) 0.1 10 ^3/uL (0-0.2); Lymphocytes # (auto) 0.7 10 ^3/uL (0.4-5.4); Mean Corpuscular Volume 96.2 fL (80.0-100.0); Monocytes # (auto) 1.5 10 ^3/uL (0-1.3); Neutrophils # (auto) 13.5 10 ^3/uL (1.6-8.6)
[2022-08-31 09:21] LABS: Basophils % (auto) 0.5 % (0.0-2.0); Eosinophils # (auto) 0.2 10 ^3/uL (0-0.8); Eosinophils % (auto) 1.4 % (0.0-7.0); Hematocrit 25.9 % (41.0-53.0); Lymphocytes % (auto) 4.2 % (10.0-50.0); Mean Corpuscular Hemoglobin 29.6 pg (28.0-32.0); Mean Corpuscular Hgb Conc. 30.8 g/dL (32.0-36.0); Monocytes % (auto) 9.5 % (0.0-12.0); Neutrophils % (auto) 84.4 % (37.0-80.0); Nucleated Red Blood Cells % 0.2 %; Red Blood Cells 2.69 10^6/uL (4.5-5.90); White Blood Cell 15.9 10^3/uL (4.4-10.8)
[2022-08-31 09:35] LABS: BUN/Creatinine Ratio 29.9; Calcium 8.4 mg/dL (8.5-10.1); Potassium 3.9 mmol/L (3.5-5.1)
[2022-08-31] MEDS: PANTOPRAZOLE 40 MG/10 ML VIAL INJ IV SCH (10:54)
[2022-08-31] MEDS: amLODIPine BESYLATE 5 MG TAB PO SCH (10:55)
[2022-08-31] MEDS: CLOPIDOGREL BISULFATE 75 MG TAB PO SCH (10:55)
[2022-08-31] MEDS: GABAPENTIN 300 MG CAP PO SCH ×2 (10:55→21:52)
[2022-08-31] MEDS: DOPamine 1600MCG/ML D5W 250 ML IV SCH (12:30)
[2022-08-31] MEDS: ATORVASTATIN 20 MG TAB PO SCH (17:21)
[2022-09-01] VITALS (86 sets, daily range): BP systolic 94–143; BP diastolic 48–69
[2022-09-01] MEDS: fentaNYL Drip 2500mCg/250mlNS 250 ML IV SCH (04:53)
[2022-09-01] MEDS: PIPERACILLIN-TAZOB 2.25GM 50 ML IV SCH ×3 (04:53→18:00)
[2022-09-01] MEDS: SODIUM CHLOR 0.9% PF (SALINE LOCK) 10ML VIAL/SYR IV SCH ×3 (05:59→13:59)
[2022-09-01] MEDS: OCTREOTIDE ACETATE 100 MCG/ML VL SUBCUT SCH ×2 (05:59→13:59)
[2022-09-01] MEDS: METOCLOPRAMIDE HCL 5MG/ml INJ 2ml VIAL IV SCH ×2 (05:59→13:59)
[2022-09-01] MEDS: ALBUTEROL SULF 2.5 MG/0.5ML(0.5%) NEB SOLN NEB SCH ×3 (06:50→11:44)
[2022-09-01] MEDS: IPRATROPIUM BROM 0.5 MG/2.5ML INH SOL NEB SCH ×3 (06:50→11:44)
[2022-09-01] MEDS: DOPamine 1600MCG/ML D5W 250 ML IV SCH (07:22)
[2022-09-01] MEDS: SUCRALFATE 1 GM/10 ML ORAL SUSP GT SCH ×3 (09:29→17:00)
[2022-09-01] MEDS: PANTOPRAZOLE 40 MG/10 ML VIAL INJ IV SCH (09:29)
[2022-09-01] MEDS: CLOPIDOGREL BISULFATE 75 MG TAB PO SCH (09:29)
[2022-09-01] MEDS: GABAPENTIN 300 MG CAP PO SCH (09:30)
[2022-09-01] MEDS: amLODIPine BESYLATE 5 MG TAB PO SCH (09:30)
[2022-09-01] MEDS: LORazepam 2MG/ML-1ML VIAL IV PRN ×4 (16:17→20:56)
[2022-09-01] MEDS: MORPHINE SULFATE INJ 2 MG/ml SYRG IV PRN ×4 (16:17→20:55)
[2022-09-01] MEDS ORDERED: HYOSCYAMINE SULF 0.125 MG ODT TAB PO PRN (18:00)
[2022-09-01] MEDS: ATORVASTATIN 20 MG TAB PO SCH (18:00)
== END 2022-09-01 21:45 | DRG 130 ==
LOC: EDBD 11:30 → ER 11:37 → TELE 15:21 → DOU IN ICU 08-14 17:12 → ICU WEST 08-14 17:48
PROVIDERS: ADMIT Nurse Practitioner Family; ATTEND Internal Medicine Pulmonary Disease
PROC: 5A09457 Assistance with Respiratory Ventilation, 24-96 Consecutive Hours, Continuous Positive Airway Pressure (ICD-10-PCS; 2022-08-13)
PROC: 5A1955Z Respiratory Ventilation, Greater than 96 Consecutive Hours (ICD-10-PCS; principal; 2022-08-15)
PROC: 0BH17EZ Insertion of Endotracheal Airway into Trachea, Via Natural or Artificial Opening (ICD-10-PCS; 2022-08-15)
PROC: 05H933Z Insertion of Infusion Device into Right Brachial Vein, Percutaneous Approach (ICD-10-PCS; 2022-08-17)
PROC: B54MZZA Ultrasonography of Right Upper Extremity Veins, Guidance (ICD-10-PCS; 2022-08-17)
PROC: 30233N1 Transfusion of Nonautologous Red Blood Cells into Peripheral Vein, Percutaneous Approach (ICD-10-PCS; 2022-08-30)
DX: J96.01 Acute respiratory failure with hypoxia (principal); N17.0 Acute kidney failure with tubular necrosis; I21.4 Non-ST elevation (NSTEMI) myocardial infarction; I50.21 Acute systolic (congestive) heart failure; J18.9 Pneumonia, unspecified organism; D63.8 Anemia in other chronic diseases classified elsewhere; I13.0 Hypertensive heart and chronic kidney disease with heart failure and stage 1 through stage 4 chronic kidney disease, or unspecified chronic kidney disease; E11.22 Type 2 diabetes mellitus with diabetic chronic kidney disease; J44.0 Chronic obstructive pulmonary disease with (acute) lower respiratory infection; Z66 Do not resuscitate; N18.31 Chronic kidney disease, stage 3a; J98.11 Atelectasis; Z51.5 Encounter for palliative care; Z20.822 Contact with and (suspected) exposure to COVID-19; B96.1 Klebsiella pneumoniae [K. pneumoniae] as the cause of diseases classified elsewhere; E78.5 Hyperlipidemia, unspecified; E87.5 Hyperkalemia; E11.51 Type 2 diabetes mellitus with diabetic peripheral angiopathy without gangrene; I45.9 Conduction disorder, unspecified; E87.6 Hypokalemia; F17.210 Nicotine dependence, cigarettes, uncomplicated; I25.10 Atherosclerotic heart disease of native coronary artery without angina pectoris; I25.2 Old myocardial infarction; Z80.3 Family history of malignant neoplasm of breast; Z80.8 Family history of malignant neoplasm of other organs or systems; Z82.49 Family history of ischemic heart disease and other diseases of the circulatory system; Z83.3 Family history of diabetes mellitus; Z86.73 Personal history of transient ischemic attack (TIA), and cerebral infarction without residual deficits; Z99.81 Dependence on supplemental oxygen; Z95.1 Presence of aortocoronary bypass graft
CPT/HCPCS: 36415; 36569; 36600; 71045; 76775; 80048; 80053; 81001; 82306; 82570; 82805; 82962; 83036; 83735; 83880; 83970; 84100; 84300; 84484; 84550; 85007; 85025; 85027; 85379; 85610; 85730; 86850; 86900; 86901; 86920; 87040; 87070; 87077; 87081; 87086; 87186; 87205; 87426; 93005; 93306; 93970; 94002; 94003; 94640; 94660; 96361; 96374; 96375; 99291; C9113; G0378; J0696; J2250; J2405; J2543; J3480; J3490; P9047